=== PATIENT | female | born 1980 | race African-American/Black ===

== ENCOUNTER 2019-08-23 16:30 | Emergency (ER) | payer MEDICAID ==
[~2019-08-23] VITALS: Ht 170.2 cm; Wt 45.4 kg
[2019-08-23 16:30] VITALS: BP 96/68
--- NOTE | 2019-08-23 16:30 | NUR ---
ED Nurse Note: Pt BIBA from home d/t abdominal pain x 1 hour ago. Pt denies N/V as of now. Pt has hx of Cervical CA stage 3, frequent exposure to radiation. Pt is AOx4, calm and cooperative, VSS, RA. Placed on bed and gown; will continue to monitor.
[2019-08-23] MEDS ORDERED: Omnipaque-300 100ml vial INJ PRN ×2 (16:45)
[2019-08-23] MEDS ORDERED: Morphine Sulfate 2mg/ml Inj(IV/IM USE ONLY) IVP ONE ×2 (17:00→18:45)
[2019-08-23] MEDS ORDERED: DiphenhydrAMINE 50mg/ml Inj IVP ONE ×2 (17:00→18:45)
--- NOTE | 2019-08-23 17:02 | NUR ---
ED Nurse Note: X-ray on bedside.
[2019-08-23 17:23] LABS: HEMATOCRIT 32.5 % (37.0-47.0); HEMOGLOBIN 10.6 G/DL (12.0-16.0); MEAN CORPUSCULAR VOLUME 85 FL (80-99); PLATELET COUNT 127 K/UL (150-450); RED BLOOD COUNT 3.84 M/UL (4.20-5.40); RED CELL DISTRIBUTION WIDTH 21.2 % (11.6-14.8); WHITE BLOOD COUNT 3.4 K/UL (4.8-10.8)
[2019-08-23 17:30] LABS: ANION GAP 17 mmol/L (5-15); BLOOD UREA NITROGEN 11 mg/dL (7-18); CALCIUM 9.6 MG/DL (8.5-10.1); CARBON DIOXIDE 22 MMOL/L (21-32); CHLORIDE 102 MMOL/L (98-107); CREATININE 0.5 MG/DL (0.55-1.30); POTASSIUM 3.5 MMOL/L (3.5-5.1); SODIUM 141 MMOL/L (136-145)
[2019-08-23 17:34] LABS: ALANINE AMINOTRANSFERASE 27 U/L (12-78); ALBUMIN 3.4 G/DL (3.4-5.0); ALBUMIN/GLOBULIN RATIO 0.7 (1.0-2.7); ALKALINE PHOSPHATASE 63 U/L (46-116); ASPARTATE AMINO TRANSFERASE 17 U/L (15-37); BILIRUBIN,TOTAL 0.3 MG/DL (0.2-1.0)
[2019-08-23 18:00] VITALS: BP 98/70
--- NOTE | 2019-08-23 18:30 | NUR ---
ED Nurse Note: Pt went on CT accompanied by tech.
--- NOTE | 2019-08-23 19:09 | NUR ---
ED Nurse Note: Hand-off report given to GLENIS Car.
--- NOTE | 2019-08-23 19:12 | Diagnostic Imaging Report ---
INDICATION: 38-year-old female with history of cervical carcinoma. Chest and abdominal pain. TECHNIQUE: Continuous helical transaxial imaging of the chest, abdomen and pelvis was obtained from the lung bases to the pubic symphysis during intravenous contrast administration. Multiple phases of enhancement obtained. Coronal 2-D reformats were also obtained. Study obtained in a Siemens sensation [address] Automatic Exposure Control was utilized. Total Dose length Product (DLP): 260.[address] Dose Index Volume (CTDIvol): 40.8 mGy COMPARISON: None FINDINGS: CT CHEST: There is a 6 mm hypodense nodule in the right thyroid lobe. This could be cystic but requires ultrasound confirmation. There are no lung nodules identified. Patchy, peripheral subpleural ill-defined densities and paraseptal blebs are present within the upper lobes. This largest single bleb or bulla is about 2 cm in the left lung apex. There is pleural thickening at the apices nonspecific. These may be areas of scarring. This does not have the appearance of a neoplasm or metastatic disease. The aorta and pulmonary artery are grossly unremarkable. Heart is unremarkable. No adenopathy seen. No pleural effusion or pericardial effusion identified. CT ABDOMEN & PELVIS: Liver and spleen: Unremarkable. No lesions identified in the liver. Gallbladder/biliary ducts: Unremarkable. No dilatation of the biliary ducts identified. Pancreas: Unremarkable Kidneys: Unremarkable. Adrenal glands: No mass identified. Aorta/IVC: Unremarkable. Portal vein: Unremarkable. Normal enhancement demonstrated. Bowel: Bowel gas pattern is nonobstructive. Diverticulosis in the sigmoid region noted. The appendix is normal. Urinary bladder: Unremarkable. Uterus: Noted. Small bilateral ovarian cysts demonstrated. On the right there is a cyst measuring 2.3 cm. On the left smaller cyst measuring about 1 cm noted. No significant free fluid identified. Osseous structures: Unremarkable. IMPRESSION: No evidence of metastatic neoplasm on the basis of this examination. Nonspecific biapical pleural thickening, paraseptal blebs and ill-defined subpleural upper lobe densities likely an post inflammatory basis. Small bilateral ovarian cysts. 6 mm right thyroid nodule. Ultrasound evaluation suggested. The CT scanner at [facility] is accredited by the [employer] and the scans are performed using dose optimization techniques as appropriate to a performed exam including Automatic Exposure control.
--- NOTE | 2019-08-23 19:53 | NUR ---
ED Nurse Note: Pt given ice and juice as a fluid challenge
--- NOTE | 2019-08-23 19:56 | NUR ---
ED Nurse Note: MRSA and VRE culture as well as inpatient orders placed by Admitting MD on wrong pt. 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
--- NOTE | 2019-08-23 20:08 | Emergency Room Report ---
History of Present Illness General Chief Complaint: Abdominal Pain Present Illness HPI 38-year-old female with history of cervical cancer stage III currently under radiation therapy with last radiation therapy done yesterday, here brought in by paramedics complaining of acute onset of epigastric abdominal pain rating a 10 out of 10 with multiple bouts of nonbloody emesis and diarrhea. Patient also complains of external hemorrhoids secondary to diarrhea and has been there for a long time. Complains of a lot of irritation and dryness inside of rated radiation in the vaginal area. Patient reports that she has not been able to take her Gol[place] due to being overly nauseated and throwing up. Denies fever and chills. Denies . Patient is in moderate distress. Denies any chest pain, pleuritic chest pain, shortness of breath, headache and dizziness. Denies any blood in emesis or diarrhea. Denies urinary symptoms. Allergies: Coded Allergies: PENICILLINS (Verified Allergy, Unknown, 08/23/19) Patient History Past Medical History: see triage record Past Surgical History: none Pertinent Family History: none Now: No Immunizations: UTD Reviewed Nursing Documentation: PMH: Agreed; PSxH: Agreed Nursing Documentation-PMH Past Medical History: No History, Except For Review of Systems All Other Systems: negative except mentioned in HPI Physical Exam Vital Signs Date Time Temp Pulse Resp B/P (MAP) Pulse Ox O2 Delivery O2 Flow Rate FiO2 08/23/19 16:22 98.4 103 17 96/68 (77) 100 Room Air Sp02 EP Interpretation: reviewed, normal General Appearance: alert, GCS 15, non-toxic, mild distress Head: normocephalic, atraumatic Eyes: bilateral eye normal inspection, bilateral eye PERRL ENT: hearing grossly normal, normal pharynx, no angioedema, normal voice Neck: full range of motion, supple, thyroid normal, no meningismus, no bony tend, supple/symm/no masses Respiratory: chest non-tender, lungs clear, normal breath sounds, no rhonchi, no respiratory distress, no wheezing, speaking full sentences Cardiovascular #1: regular rate, rhythm, no edema, no murmur, normal capillary refill Cardiovascular #2: 2+ carotid (R), 2+ carotid (L), 2+ radial (R), 2+ radial (L) , 2+ dorsalis pedis (R), 2+ dorsalis pedis (L) Gastrointestinal: normal bowel sounds, non tender, soft, non-distended, no guarding, no rebound Rectal: deferred Genitourinary: no CVA tenderness Musculoskeletal: back normal, no calf tenderness, pelvis stable, Geri's Sign negative, no lower extremity edema Neurologic: alert, motor strength/tone normal, oriented x3, sensory intact, responsive, speech normal Psychiatric: judgement/insight normal, memory normal, mood/affect normal, no suicidal/homicidal ideation Skin: no rash Lymphatic: no adenopathy Medical Decision Making PA Attestation All my diagnosis and treatment plans were reviewed ad discussed with my supervising physician Dr. Sahu Diagnostic Impression: Primary Impression: Post-radiation dermatitis Additional Impressions: Abdominal pain External hemorrhoid UTI (urinary tract infection) ER Course 38-year-old female with history of cervical cancer stage III currently under radiation therapy with last radiation therapy done yesterday, here brought in by paramedics complaining of acute onset of epigastric abdominal pain rating a 10 out of 10 with multiple bouts of nonbloody emesis and diarrhea. Patient also complains of external hemorrhoids secondary to diarrhea and has been there for a long time. Complains of a lot of irritation and dryness inside of rated radiation in the vaginal area. Patient reports that she has not been able to take her Gol[place]a due to being overly nauseated and throwing up. Denies fever and chills. Denies . Patient is in moderate distress. Denies any chest pain, pleuritic chest pain, shortness of breath, headache and dizziness. Denies any blood in emesis or diarrhea. Denies urinary symptoms. Patient also complains of vaginal irritation that has been somewhat responsive to Neosporin and dressing. Prescription for equivalent to Neosporin. Ddx considered but are not limited to: appendicitis, cholecystis, gastritis, gastroenteritis, UTI, pyelonephritis, SBO, diverticulitis, influenza with GI manifestation, KS, postradiation abdominal pain, PE Vital signs: are WNL, pt. is afebrile H&PE are most consistent with: Post radiation abdominal pain, external hemorrhoids, vaginal irritation, UTI ORDERS: abdominal CT, abdominal pain set, EKG, Zofran, Anusol cream, Bactroban cream, macrobid ED INTERVENTIONS: NS bolus, morphine, Zofran, Benadryl DISCHARGE: At this time pt. is stable for d/c to home. Will provide printed patient care instructions, and any necessary prescriptions. Care plan and follow up instructions have been discussed with the patient prior to discharge. Take medication as directed, follow-up primary care provider, increase oral hydration, if worsening symptoms return to the emergency room. Patient reported that she breaks into hives with morphine however Benadryl, and after morphine she will be fine. Patient reports that she is allergic to Dilaudid. Follow-up with oncologist, if worsening symptoms return to emergency room. Advised her to take Zofran prior to Gol[place]a. EKG Diagnostic Results Rate: normal Rhythm: NSR ST Segments: no acute changes Other Impression No acute ST changes Chest X-Ray Diagnostic Results Chest X-Ray Diagnostic Results : Chest X-Ray Ordered: Yes # of Views/Limited/Complete: 1 View Indication: Other EP Interpretation: Yes PA Xray: Interpretation reviewed, by supervising MD, and agrees with findings. Interpretation: no consolidation, no effusion, no pneumothorax Impression: No acute disease Electronically Signed by: Ada Dowell PA-C CT/MRI/US Diagnostic Results CT/MRI/US Diagnostic Results : Imaging Test Ordered: CT chest abdomen pelvis with contrast Impression CT ABDOMEN & PELVIS With Contrast: Impression: There is diffuse thickening of the liang of the sigmoid colon, best seen on series 8 image 65 most compatible with inflammatory or infectious etiologies. Clinical correlation is advised. Ischiorectal fat is clean. There is no pelvic or inguinal lymphadenopathy noted. Prominent vasculature is noted in the adnexal regions bilaterally. If there is concern for etiology such as pelvic venous congestion syndrome, magnetic resonance imaging of the pelvis with gadolinium administration should be considered for follow-up. Incidental findings: The liver and the spleen enhance uniformly. The right adrenal gland is unremarkable. Probable 0.5 cm left adrenal adenoma. The head, body, tail of the pancreas and the gallbladder are unremarkable. Both kidneys are shown excrete contrast bilaterally. No retroperitoneal lymphadenopathy. The abdominal aorta is normal in caliber. Flow is demonstrated within the celiac, SMA, the renal arteries, and ANALIA. Moderate quantity of stool throughout the colon. No evidence of bowel obstruction. There is diverticulosis without diverticulitis. Fluid is noted within endometrial cavity. A 2.2 cm probable simple right ovarian cyst. The bladder is under distended but unremarkable. Ischiorectal fat is clean. There is no pelvic or inguinal lymphadenopathy. Alignment of the thoracolumbar spine is unremarkable. The sacrum and coccyx are unremarkable. CT CHEST With Contrast: Impression: Biapical fibronodular changes. A few scattered subcentimeter pulmonary nodules as outlined above of uncertain etiology. Thoracic aorta is unremarkable. No central pulmonary embolism. Limited evaluation of the peripheral branch of the pulmonary arteries which are grossly unremarkable. No hilar, mediastinal, or axillary lymphadenopathy. 0.4 cm indeterminate nodule right lobe of the thyroid gland. Incidental findings: Minimal bullous changes and fibronodular changes are noted at the lung apices. Best seen on series 7 image 41, there is a 4.2 cm pleural- based nodule of uncertain etiology. Best seen on series 7 image 51, there is a 0.5 cm noncalcified nodule of uncertain etiology. Evaluation of the left pulmonary parenchyma reveals patchy airspace disease at the inferior aspect of the right upper lobe possibly in the base of earlier residual pneumonia versus subsegmental atelectasis. Minimal bullous changes in fiber nodularity at the left apex is noted. The airway is patent. Evaluation of bone window images reveals mild degenerative disc disease. Alignment of the thoracic spine is unremarkable. The sternum is unremarkable. Spinous processes are unremarkable. Thoracic aorta is unremarkable. No central pulmonary embolism is detected. Grossly, the peripheral branch of the pulmonary arteries are unremarkable but limited in evaluation. The heart is normal in size. Last Vital Signs Date Time Temp Pulse Resp B/P (MAP) Pulse Ox O2 Delivery O2 Flow Rate FiO2 08/23/19 18:06 98.4 08/23/19 18:00 68 18 98/70 100 Room Air Status: improved Disposition: HOME, SELF-CARE Condition: Stable Scripts Mupirocin (MUPIROCIN) 15 Gm Cream..g. 1 APPLIC TOPIC THREE TIMES A DAY, #15 GM Prov: MagalysmogAda fournier 08/23/19 Hydrocortisone Hc 2.5% Cream (ANUSOL-HC 2.5% CREAM) Y Cr 2 GM RC TID, #30 GM Prov: Ada Loaiza 08/23/19 Ondansetron (Zofran) 4 Mg Tablet 4 MG ORAL Q6H PRN for Nausea & Vomiting, #14 TAB Prov: Ada Loaiza 08/23/19 Referrals: NON PHYSICIAN (PCP) Patient Instructions: Abdominal Pain, Adult, Hemorrhoids, [id number], Urinary Tract Infection Additional Instructions: Take medication as directed, follow-up with your oncologist, increase oral hydration, take your Zofran prior to taking your Golconda to prevent nausea. If worsening symptoms return to the emergency room Ada Loaiza Aug 23, 2019 20:08
[2019-08-23 20:12] LABS: APPEARANCE,URINE CLEAR; BILIRUBIN, URINE NEGATIVE (NEGATIVE); COLOR,URINE PALE YELLOW; GLUCOSE, URINE (UA) NEGATIVE (NEGATIVE); KETONES,URINE NEGATIVE (NEGATIVE); LEUKOCYTE ESTERASE ,URINE 3+ (NEGATIVE); NITRITE,URINE NEGATIVE (NEGATIVE); PH,URINE 7 (4.5-8.0); PROTEIN,URINE 1+ (NEGATIVE); UROBILINOGEN,URINE NORMAL MG/DL (0.0-1.0)
[2019-08-23] MEDS ORDERED: ZOFRAN4 M1 ORAL (20:25)
[2019-08-23] MEDS ORDERED: ANUSOL-HC30 GM RC (20:25)
[2019-08-23] MEDS ORDERED: MUPIROCIN15 GM TOPIC (20:25)
[2019-08-23] MEDS ORDERED: NITROFURANTOIN100 M2 ORAL (20:28)
[2019-08-23] MEDS ORDERED: DiphenhydrAMINE 25mg Tab ORAL ONE (20:30)
[2019-08-23 21:00] VITALS: BP 98/70
--- NOTE | 2019-08-23 21:00 | NUR ---
ER DISCHARGE NOTE: Patient is cleared to be discharged per ERMD, pt is aox4, on room air, with stable vital signs. pt was given dc and prescription instructions, pt was able to verbalize understanding, pt id band and iv site removed without complications. pt is able to ambulate with steady gait. pt took all belongings.
--- NOTE | 2019-08-24 12:32 | Diagnostic Imaging Report ---
Indication: Dyspnea Comparison: None A single view chest radiograph was obtained. Findings: Biapical pleural thickening demonstrated, nonspecific. Heart size is normal. Bones are unremarkable. No pleural effusion seen. No infiltrate identified. IMPRESSION: Mild biapical pleural thickening nonspecific.
== END 2019-08-23 21:00 | disposition home or self-care (01) ==
LOC: EDBD 16:30 → EMR 16:45
DX: R10.13 Epigastric pain (principal); N39.0 Urinary tract infection, site not specified; K64.4 Residual hemorrhoidal skin tags; L25.8 Unspecified contact dermatitis due to other agents; Z88.0 Allergy status to penicillin
CPT/HCPCS: 36415; 71045; 71260; 74177; 80053; 80307; 81003; 81025; 83690; 84484; 85007; 85025; 85610; 85730; 86850; 86900; 86901; 87086; 93005; 96361; 96374; 96375; 96376; J1200; J2270; J2405; J7030; Q9967; S0028; Z7502; 99285

== ENCOUNTER 2019-08-27 11:37 | Inpatient (IN) | payer MEDICAID ==
[~2019-08-27] VITALS: Ht 172.7 cm; Wt 49.9 kg
[~2019-08-27 11:37] MED LIST: ANUSOL-HC30 GM RC; MUPIROCIN15 GM TOPIC; NITROFURANTOIN100 M2 ORAL; ZOFRAN4 M1 ORAL
[2019-08-27] MEDS ORDERED: Morphine Sulfate 4mg/ml Inj (IV USE ONLY) IVP ONE (12:15)
[2019-08-27 12:30] VITALS: BP 99/69
--- NOTE | 2019-08-27 12:30 | NUR ---
ED Nurse Note: Patient brought into [facility] by wheelchair accompanied by cousin c/o n/v/d x 1 week with generalized 10/10 body aches d/t recent radiation therapy post-cervical cancer dx. Patient AxO x 4, unable to ambulate more than a few steps d/t the pain she feels. 22g IV started in right hand. Patient on the awake overnight monitor, bed in lowest position. VSS. Blood sent to lab. Patient unable to urinate at the moment.
--- NOTE | 2019-08-27 12:40 | NUR ---
ED Nurse Note: Verbal order received from Dr. Rincon for 25 mg Bendryl once IVP for itching.
[2019-08-27] MEDS ORDERED: DiphenhydrAMINE 50mg/ml Inj ONE ×2 (12:48→13:57)
--- NOTE | 2019-08-27 13:03 | Emergency Room Report ---
History of Present Illness General Chief Complaint: Nausea, Vomiting, and Diarrhea Source: Patient Present Illness HPI 38-year-old female history of cervical cancer, stage III, currently on radiation therapy presented for nausea vomiting and diarrhea. She has had persistent nausea vomiting diarrhea for the past 3 days. Unable to tolerate p.o. intake. Last radiation treatment was about 2 weeks ago. She has scheduled surgery for her cervical cancer later this month. She denies any fevers. Pain is generalized but worse in the pelvic region about 10 out of 10. Patient seen approximately 3 days ago for the same had a CT scan showing some inflammatory changes in the bowel most likely secondary to radiation exposure and was discharged on oral antibiotic. Been unable to take her medications at home due to vomiting. Allergies: Coded Allergies: PENICILLINS (Verified Allergy, Unknown, 08/23/19) Patient History Past Medical History: see triage record Last Menstrual Period: NA Now: No Reviewed Nursing Documentation: PMH: Agreed; PSxH: Agreed Nursing Documentation-PMH Past Medical History: No History, Except For Review of Systems All Other Systems: negative except mentioned in HPI Physical Exam Vital Signs Date Time Temp Pulse Resp B/P (MAP) Pulse Ox O2 Delivery O2 Flow Rate FiO2 08/27/19 11:43 98.2 97 18 99/69 (79) 97 Room Air Sp02 EP Interpretation: reviewed, normal General Appearance: mild distress, thin Head: normocephalic, atraumatic Eyes: bilateral eye PERRL, bilateral eye EOMI ENT: hearing grossly normal, moist mucus membranes Neck: full range of motion, supple Respiratory: lungs clear, normal breath sounds, no rhonchi, no respiratory distress, no retraction, no wheezing Cardiovascular #1: normal peripheral pulses, regular rate, rhythm, no murmur Gastrointestinal: soft, non-distended, no guarding, other - Lower abdominal tenderness noted Neurologic: alert, oriented x3, no focal defects Skin: normal color, warm/dry Medical Decision Making Diagnostic Impression: Primary Impression: Intractable vomiting Additional Impression: Dehydration ER Course Differential included but not limited to intractable vomiting, post radiation nominal pain, dehydration, worsening cancer burden to name a few. In the ER patient given IV fluids, pain control and Zofran. Patient feeling improved after treatment in the ER but still having pain and unable to tolerate p.o. fluids. As this is her second visit to the ER for vomiting and diarrhea will plan to admit for IV hydration pain control and observation. Patient was agreeable with the plan. Patient admitted to the hospitalist. Laboratory Tests Test 08/27/19 12:20 White Blood Count 2.9 K/UL (4.8-10.8) L Red Blood Count 3.67 M/UL (4.20-5.40) L Hemoglobin 10.4 G/DL (12.0-16.0) L Hematocrit 31.0 % (37.0-47.0) L Mean Corpuscular Volume 84 FL (80-99) Mean Corpuscular Hemoglobin 28.4 PG (27.0-31.0) Mean Corpuscular Hemoglobin Concent 33.7 G/DL (32.0-36.0) Red Cell Distribution Width 18.2 % (11.6-14.8) H Platelet Count 121 K/UL (150-450) L Mean Platelet Volume 6.0 FL (6.5-10.1) L Neutrophils (%) (Auto) % (45.0-75.0) Lymphocytes (%) (Auto) % (20.0-45.0) Monocytes (%) (Auto) % (1.0-10.0) Eosinophils (%) (Auto) % (0.0-3.0) Basophils (%) (Auto) % (0.0-2.0) Differential Total Cells Counted 100 Neutrophils % (Manual) 74 % (45-75) Lymphocytes % (Manual) 10 % (20-45) L Monocytes % (Manual) 13 % (1-10) H Eosinophils % (Manual) 3 % (0-3) Basophils % (Manual) 0 % (0-2) Band Neutrophils 0 % (0-8) Platelet Estimate Decreased L Platelet Morphology Normal Red Blood Cell Morphology Hypochromasia 1+ Sodium Level 139 MMOL/L (136-145) Potassium Level 3.8 MMOL/L (3.5-5.1) Chloride Level 100 MMOL/L (98-107) Carbon Dioxide Level 27 MMOL/L (21-32) Anion Gap 12 mmol/L (5-15) Blood Urea Nitrogen 9 mg/dL (7-18) Creatinine 0.5 MG/DL (0.55-1.30) L Estimate Glomerular Filtration Rate > 60 mL/min (>60) Glucose Level 98 MG/DL (74-106) Calcium Level 10.0 MG/DL (8.5-10.1) Total Bilirubin 0.5 MG/DL (0.2-1.0) Aspartate Amino Transferase (AST) 20 U/L (15-37) Alanine Aminotransferase (ALT) 22 U/L (12-78) Alkaline Phosphatase 64 U/L (46-116) Total Protein 8.5 G/DL (6.4-8.2) H Albumin 3.7 G/DL (3.4-5.0) Globulin 4.8 g/dL Albumin/Globulin Ratio 0.8 (1.0-2.7) L Lipase 81 U/L (73-393) Last Vital Signs Date Time Temp Pulse Resp B/P (MAP) Pulse Ox O2 Delivery O2 Flow Rate FiO2 08/27/19 11:43 98.2 97 18 99/69 (79) 97 Room Air Status: improved Disposition: ADMITTED INPATIENT Condition: Serious Bill Rincon M.D. Aug 27, 2019 13:03
[2019-08-27 13:10] LABS: ANION GAP 12 mmol/L (5-15); BLOOD UREA NITROGEN 9 mg/dL (7-18); CARBON DIOXIDE 27 MMOL/L (21-32); CHLORIDE 100 MMOL/L (98-107); CREATININE 0.5 MG/DL (0.55-1.30); POTASSIUM 3.8 MMOL/L (3.5-5.1); SODIUM 139 MMOL/L (136-145)
[2019-08-27 13:14] LABS: ALANINE AMINOTRANSFERASE 22 U/L (12-78); ALBUMIN 3.7 G/DL (3.4-5.0); ALBUMIN/GLOBULIN RATIO 0.8 (1.0-2.7); ALKALINE PHOSPHATASE 64 U/L (46-116); ASPARTATE AMINO TRANSFERASE 20 U/L (15-37); BILIRUBIN,TOTAL 0.5 MG/DL (0.2-1.0)
[2019-08-27 13:22] LABS: HEMOGLOBIN 10.4 G/DL (12.0-16.0); MEAN CORPUSCULAR VOLUME 84 FL (80-99); PLATELET COUNT 121 K/UL (150-450); RED BLOOD COUNT 3.67 M/UL (4.20-5.40); RED CELL DISTRIBUTION WIDTH 18.2 % (11.6-14.8); WHITE BLOOD COUNT 2.9 K/UL (4.8-10.8)
--- NOTE | 2019-08-27 13:53 | NUR ---
ED Nurse Note: Patient still itchy from Morphine. Verbal order for Benadryl 25 mg IVP once for itching received from Dr. Rincon.
[2019-08-27 14:30] VITALS: BP 108/72
--- NOTE | 2019-08-27 14:35 | NUR ---
ED Nurse Note: Patient provided urine sample using bedside commode. Urine sent to lab.
[2019-08-27] MEDS ORDERED: DiphenhydrAMINE 50mg/ml Inj IVP ONE (14:45)
--- NOTE | 2019-08-27 14:58 | NUR ---
ED Nurse Note: Report given to Milak GALVIN
[2019-08-27 15:01] LABS: APPEARANCE,URINE CLEAR; BILIRUBIN, URINE NEGATIVE (NEGATIVE); COLOR,URINE YELLOW; GLUCOSE, URINE (UA) NEGATIVE (NEGATIVE); KETONES,URINE NEGATIVE (NEGATIVE); LEUKOCYTE ESTERASE ,URINE 3+ (NEGATIVE); NITRITE,URINE NEGATIVE (NEGATIVE); PH,URINE 7 (4.5-8.0); PROTEIN,URINE 1+ (NEGATIVE); UROBILINOGEN,URINE NORMAL MG/DL (0.0-1.0)
--- NOTE | 2019-08-27 15:20 | NUR ---
NURSE NOTES: PATIENT ARRIVED FROM ED DEPT. VIA GURNEY. AOX4. WITH FAMILY AT SIDE. QUESTIONS ANSWERED NEEDS MET AT THIS TIME. DISCUSSED PLAN OF CARE FOR THE DAY. VERBALIZED UNDERSTANDING. PT. ORIENTED TO ROOM. WILL NOTIFY PCP OF PATIENT'S ARRIVAL TO FLOOR. BED IN LOW AND LOCKED POSITION. CALL LIGHT WITHIN REACH.
[2019-08-27 16:00] VITALS: BP 105/65
--- NOTE | 2019-08-27 16:24 | Cardiac Electrophysiology PN ---
Subjective Subjective [id number] Objective Last 24 Hour Vital Signs Date Time Temp Pulse Resp B/P (MAP) Pulse Ox O2 Delivery O2 Flow Rate FiO2 08/27/19 14:30 98.0 76 19 108/72 100 Room Air 08/27/19 13:02 98.0 08/27/19 12:30 98.2 78 18 99/69 97 Room Air 08/27/19 11:43 98.2 97 18 99/69 (79) 97 Room Air Laboratory Tests Test 08/27/19 12:20 08/27/19 14:38 White Blood Count 2.9 K/UL (4.8-10.8) L Red Blood Count 3.67 M/UL (4.20-5.40) L Hemoglobin 10.4 G/DL (12.0-16.0) L Hematocrit 31.0 % (37.0-47.0) L Mean Corpuscular Volume 84 FL (80-99) Mean Corpuscular Hemoglobin 28.4 PG (27.0-31.0) Mean Corpuscular Hemoglobin Concent 33.7 G/DL (32.0-36.0) Red Cell Distribution Width 18.2 % (11.6-14.8) H Platelet Count 121 K/UL (150-450) L Mean Platelet Volume 6.0 FL (6.5-10.1) L Neutrophils (%) (Auto) % (45.0-75.0) Lymphocytes (%) (Auto) % (20.0-45.0) Monocytes (%) (Auto) % (1.0-10.0) Eosinophils (%) (Auto) % (0.0-3.0) Basophils (%) (Auto) % (0.0-2.0) Differential Total Cells Counted 100 Neutrophils % (Manual) 74 % (45-75) Lymphocytes % (Manual) 10 % (20-45) L Monocytes % (Manual) 13 % (1-10) H Eosinophils % (Manual) 3 % (0-3) Basophils % (Manual) 0 % (0-2) Band Neutrophils 0 % (0-8) Platelet Estimate Decreased L Platelet Morphology Normal Red Blood Cell Morphology Hypochromasia 1+ Sodium Level 139 MMOL/L (136-145) Potassium Level 3.8 MMOL/L (3.5-5.1) Chloride Level 100 MMOL/L (98-107) Carbon Dioxide Level 27 MMOL/L (21-32) Anion Gap 12 mmol/L (5-15) Blood Urea Nitrogen 9 mg/dL (7-18) Creatinine 0.5 MG/DL (0.55-1.30) L Estimat Glomerular Filtration Rate > 60 mL/min (>60) Glucose Level 98 MG/DL (74-106) Calcium Level 10.0 MG/DL (8.5-10.1) Total Bilirubin 0.5 MG/DL (0.2-1.0) Aspartate Amino Transf (AST/SGOT) 20 U/L (15-37) Alanine Aminotransferase (ALT/SGPT) 22 U/L (12-78) Alkaline Phosphatase 64 U/L (46-116) Total Protein 8.5 G/DL (6.4-8.2) H Albumin 3.7 G/DL (3.4-5.0) Globulin 4.8 g/dL Albumin/Globulin Ratio 0.8 (1.0-2.7) L Lipase 81 U/L (73-393) Urine Color Yellow Urine Appearance Clear Urine pH 7 (4.5-8.0) Urine Specific Dora 1.005 (1.005-1.035) Urine Protein 1+ (NEGATIVE) H Urine Glucose (UA) Negative (NEGATIVE) Urine Ketones Negative (NEGATIVE) Urine Blood 2+ (NEGATIVE) H Urine Nitrite Negative (NEGATIVE) Urine Bilirubin Negative (NEGATIVE) Urine Urobilinogen Normal MG/DL (0.0-1.0) Urine Leukocyte Esterase 3+ (NEGATIVE) H Urine RBC 2-4 /HPF (0 - 2) H Urine WBC 20-30 /HPF (0 - 2) H Urine Squamous Epithelial Cells Few /LPF (NONE/OCC) Urine Bacteria Few /HPF (NONE) Urine HCG, Qualitative Negative (NEGATIVE) Charles Mckeon MD Aug 27, 2019 16:24
--- NOTE | 2019-08-27 16:44 | NUR ---
CHARGE NURSE NOTES: LEFT MESSAGE TO dR Willis for admission orders
[2019-08-27] MEDS ORDERED: Aztreonam Inj 2 GM in D5W 110 ML IVPB SCH (17:00)
--- NOTE | 2019-08-27 17:10 | NUR ---
NURSE NOTES: CONSULTING. ORDERED 3 DIFFERENT IV ANTIBIOTICS. PATIENT RELUCTANT TO HAVE THEM INFUSED WITHOUT MORE CLARIFICATION FROM THE ID MD. PLACED CALL TO DR. TORRES.WILL CALL AGAIN PER MD REQUEST TO TALK WITH PATIENT BY PHONE. PATIENT MADE AWARE.
--- NOTE | 2019-08-27 17:15 | Consultation ---
DATE OF CONSULTATION: 08/27/2019 CARDIOLOGY CONSULTATION CONSULTING PHYSICIAN: Charles Mckeon M.D. REFERRING PHYSICIAN: Ngoc Teresa M.D. REASON FOR CONSULTATION: Shortness of breath and hypotension. HISTORY OF PRESENT ILLNESS: The patient is a 38-year-old lady with history of stage III cervical cancer status post surgery and who completed radiation therapy just last week, presented to the emergency room with nausea, vomiting, and diarrhea the last 3 days. The patient was not able to take any p.o. intake. The patient is scheduled for her cervical cancer surgery later this month. The patient was seen in the ER [address] showed some changes in bowel most likely secondary to radiation exposure and was discharged on p.o. antibiotics. The patient has not been able to take medication at home due to nausea and vomiting, came to the emergency room. In the ER, blood pressure was only 99/65 with a pulse of 97, respirations of 18. REVIEW OF SYSTEMS: Negative other than what was mentioned in the history of present illness. PAST MEDICAL HISTORY: As mentioned above. FAMILY HISTORY: Noncontributory. SOCIAL HISTORY: Lives at home. Does not smoke or drink alcohol. PHYSICAL EXAMINATION: VITAL SIGNS: Blood pressure of 108/72, pulse 76, respirations 19, temperature 98. HEAD AND NECK: Showed no JVD. LUNGS: Clear. CARDIOVASCULAR: Regular S1 and S2 with no gallop. ABDOMEN: Soft. EXTREMITIES: No pitting edema. LABORATORY DATA: Her labs show white count of 2.9, hemoglobin 10.4, platelet count 121. Sodium 139, potassium 3.8, BUN of 9, creatinine 0.9. Troponin is negative. Urine toxicology screen is negative. ASSESSMENT AND PLAN: 1. Hypotension. Blood pressures is in the 90s. The patient however does not have any lightheadedness or dizziness. If the hypotension continues, I will start the patient on midodrine. In the meantime, get an echocardiogram and completely rule out MS protocol. 2. Shortness of breath. Check a BNP and echocardiogram. 3. Pancytopenia with low white count of 2.9, hemoglobin of 10, and platelet count of 121. Further evaluation by Hematology. 4. Cervical cancer, status post radiation therapy. 5. Intractable nausea and vomiting, followed by GI. Thank you very much, Dr. Teresa, for allowing me to participate in the care of this patient. Please do not hesitate to contact me for any questions regarding my evaluation. Charles Mckeon M.D. DR: DAVID JOB#: [id number] CC:
[2019-08-27] MEDS ORDERED: Vancomycin 1gm/D5W 275ml IVPB ONE ×2 (17:30)
[2019-08-27] MEDS ORDERED: Vancomycin 1gm/D5W 275ml IVPB SCH ×4 (17:30→22:00)
[2019-08-27] MEDS ORDERED: Morphine Sulfate 4mg/ml Inj (IV USE ONLY) IVP PRN (17:45)
[2019-08-27] MEDS ORDERED: DiphenhydrAMINE 50mg/ml Inj IVP PRN (17:45)
--- NOTE | 2019-08-27 18:25 | NUR ---
NURSE NOTES: 2ND CALL PLACED TO DR. TORRES. TRANSFERRED BY PHONE TO PATIENT'S ROOM. SPOKE TO PATIENT AND WITH MORE CLARIFICATION OF WHY X3 IV ANTIBIOTICS. PATIENT NOW AGREES TO RECEIVE ANTIBIOTICS ORDERED.
[2019-08-27] MEDS: D5NS 1,000 ML IV SCH (18:54)
--- NOTE | 2019-08-27 19:43 | NUR ---
NURSE NOTES: HAND-OFF: Report given to TRINO VANEGAS RN.
--- NOTE | 2019-08-27 19:45 | NUR ---
NURSE NOTES: Pt. received from GLENIS Jarquin. Pt. AAOx4, on room air, ambulatory, breathing is even and unlabored. IV access right hand 22g noted, asymptomatic, intact, and patent. Bed is low and locked, side rails x2 up, and call light is in reach. Will continue to monitor.
[2019-08-27 20:00] VITALS: BP 113/74
[2019-08-27] MEDS ORDERED: LORazepam 0.5mg tab ORAL PRN (21:15)
--- NOTE | 2019-08-27 22:15 | NUR ---
NURSE NOTES: Pt. started complaining about headaches and subsequently vomiting following IV vancomycin running. IV vancomycin now stopped.
--- NOTE | 2019-08-27 23:23 | NUR ---
NURSE NOTES: Dr. Avitia called regarding pt. reaction to vancomycin, awaiting return call. Will continue to monitor pt.
[2019-08-28] VITALS: BP 99/61
[2019-08-28] MEDS: Ketorolac 30mg Inj IV PRN (00:21)
[2019-08-28] MEDS: Aztreonam Inj 2 GM in D5W 110 ML IVPB SCH ×4 (00:52→23:10)
[2019-08-28 04:00] VITALS: BP 123/73
[2019-08-28] MEDS: D5NS 1,000 ML IV SCH ×3 (04:00→14:00)
[2019-08-28] MEDS: Morphine Sulfate 2mg/ml Inj(IV/IM USE ONLY) IVP PRN ×4 (05:15→18:47)
[2019-08-28 07:37] LABS: HEMATOCRIT 26.4 % (37.0-47.0); HEMOGLOBIN 9.1 G/DL (12.0-16.0); MEAN CORPUSCULAR VOLUME 85 FL (80-99); PLATELET COUNT 103 K/UL (150-450); RED BLOOD COUNT 3.13 M/UL (4.20-5.40); RED CELL DISTRIBUTION WIDTH 18.3 % (11.6-14.8)
[2019-08-28 07:38] LABS: WHITE BLOOD COUNT 1.7 K/UL (4.8-10.8)
--- NOTE | 2019-08-28 07:44 | General Progress Note ---
Assessment/Plan Assessment/Plan: cervical Ca radiation enteritis diarrhea wt loss pancytopenia ivf pain control stool studies fu cardiology Subjective ROS Limited/Unobtainable: Yes Allergies: Coded Allergies: PENICILLINS (Verified Allergy, Unknown, 08/23/19) VANCOMYCIN (Verified Adverse Reaction, Intermediate, 08/27/19) headache and vomitting Objective Last 24 Hour Vital Signs Date Time Temp Pulse Resp B/P (MAP) Pulse Ox O2 Delivery O2 Flow Rate FiO2 08/28/19 05:45 98.2 08/28/19 04:00 98.0 80 21 123/73 (90) 97 08/28/19 00:51 98.2 08/28/19 00:00 97.6 72 20 99/61 (74) 98 08/27/19 21:00 Room Air 08/27/19 20:00 98.2 67 20 113/74 (87) 98 08/27/19 18:58 98.4 08/27/19 16:00 98.4 70 17 105/65 (78) 96 08/27/19 15:38 Room Air 08/27/19 15:10 98.0 76 19 108/72 100 Room Air 08/27/19 14:30 98.0 76 19 108/72 100 Room Air 08/27/19 13:02 98.0 08/27/19 12:30 98.2 78 18 99/69 97 Room Air 08/27/19 11:43 98.2 97 18 99/69 (79) 97 Room Air Intake and Output 08/27/19 08/28/19 19:00 07:00 Intake Total 1000 ml 1310 ml Balance 1000 ml 1310 ml Intake Oral 0 ml IV Total 1000 ml 1310 ml # Voids 4 # Bowel Movements 1 1 Laboratory Tests 08/27/19 12:20: White Blood Count 2.9L, Red Blood Count 3.67L, Hemoglobin 10.4L, Hematocrit 31.0L, Mean Corpuscular Volume 84, Mean Corpuscular Hemoglobin 28.4, Mean Corpuscular Hemoglobin Concent 33.7, Red Cell Distribution Width 18.2H, Platelet Count 121L, Mean Platelet Volume 6.0L, Neutrophils (%) (Auto) , Lymphocytes (%) (Auto) , Monocytes (%) (Auto) , Eosinophils (%) (Auto) , Basophils (%) (Auto) , Differential Total Cells Counted 100, Neutrophils % ( Manual) 74, Lymphocytes % (Manual) 10L, Monocytes % (Manual) 13H, Eosinophils % (Manual) 3, Basophils % (Manual) 0, Band Neutrophils 0, Platelet Estimate DecreasedL, Platelet Morphology Normal, Red Blood Cell Morphology , Hypochromasia 1+, Sodium Level 139, Potassium Level 3.8, Chloride Level 100, Carbon Dioxide Level 27, Anion Gap 12, Blood Urea Nitrogen 9, Creatinine 0.5L, Estimat Glomerular Filtration Rate > 60, Glucose Level 98, Calcium Level 10.0, Total Bilirubin 0.5, Aspartate Amino Transf (AST/SGOT) 20, Alanine Aminotransferase (ALT/SGPT) 22, Alkaline Phosphatase 64, Total Protein 8.5H, Albumin 3.7, Globulin 4.8, Albumin/Globulin Ratio 0.8L, Lipase 81 08/27/19 14:38: D-Dimer 0.70H, Urine Color Yellow, Urine Appearance Clear, Urine pH 7, Urine Specific [place] 1.005, Urine Protein 1+H, Urine Glucose (UA) Negative, Urine Ketones Negative, Urine Blood 2+H, Urine Nitrite Negative, Urine Bilirubin Negative, Urine Urobilinogen Normal, Urine Leukocyte Esterase 3+H, Urine RBC 2- 4H, Urine WBC 20-30H, Urine Squamous Epithelial Cells Few, Urine Bacteria Few, Urine HCG, Qualitative Negative 08/28/19 05:15: White Blood Count 1.7*L, Red Blood Count 3.13L, Hemoglobin 9.1L, Hematocrit 26.4L, Mean Corpuscular Volume 85, Mean Corpuscular Hemoglobin 29.1, Mean Corpuscular Hemoglobin Concent 34.4, Red Cell Distribution Width 18.3H, Platelet Count 103L, Mean Platelet Volume 5.9L, Neutrophils (%) (Auto) , Lymphocytes (%) (Auto) , Monocytes (%) (Auto) , Eosinophils (%) (Auto) , Basophils (%) (Auto) , Neutrophils % (Manual) [Pending], Lymphocytes % (Manual) [Pending], Platelet Estimate [Pending], Platelet Morphology [Pending], Sodium Level [Pending], Potassium Level [Pending], Chloride Level [Pending], Carbon Dioxide Level [Pending], Blood Urea Nitrogen [Pending], Creatinine [Pending], Estimat Glomerular Filtration Rate [Pending], Glucose Level [Pending], Calcium Level [Pending], Total Bilirubin [Pending], Aspartate Amino Transf (AST/SGOT) [ Pending], Alanine Aminotransferase (ALT/SGPT) [Pending], Alkaline Phosphatase [ Pending], Total Protein [Pending], Albumin [Pending], Globulin [Pending], Hemoglobin A1c [Pending], Uric Acid [Pending], Phosphorus Level [Pending], Magnesium Level [Pending], Iron Level [Pending], Unsaturated Iron Binding [ Pending], Ferritin [Pending], Gamma Glutamyl Transpeptidase [Pending], Troponin I [Pending], C-Reactive Protein, Quantitative [Pending], Pro-B-Type Natriuretic Peptide [Pending], Vitamin B12 Level [Pending], Folate [Pending], Thyroid Stimulating Hormone (TSH) [Pending], Free Thyroxine [Pending] 08/28/19 05:20: Urine Opiates Screen [Pending], Urine Barbiturates Screen [Pending], Phencyclidine (PCP) Screen [Pending], Urine Amphetamines Screen [Pending], Urine Benzodiazepines Screen [Pending], Urine Cocaine Screen [Pending], Urine Marijuana (THC) Screen [Pending] Height (Feet): 5 Height (Inches): 8.00 Weight (Pounds): 110 General Appearance: alert EENT: normal ENT inspection Neck: supple Cardiovascular: normal rate Respiratory/Chest: lungs clear Abdomen: normal bowel sounds, non tender, soft Extremities: non-tender Vinny Kennedy MD Aug 28, 2019 07:44
--- NOTE | 2019-08-28 07:45 | NUR ---
NURSE NOTES: Spoke with Dr. Avitia, doctor is aware. No new orders.
[2019-08-28 08:00] VITALS: BP 108/66
[2019-08-28] MEDS ORDERED: Vancomycin 1gm/D5W 275ml IVPB SCH ×2 (08:00)
--- NOTE | 2019-08-28 08:04 | NUR ---
HAND-OFF: Report given to GLENIS Garza.
[2019-08-28 08:05] LABS: GAMMA GLUTAMYL TRANSPEPTIDASE 21 U/L (5-85); PHOSPHORUS 4.5 MG/DL (2.5-4.9)
--- NOTE | 2019-08-28 08:12 | NUR ---
NURSE NOTES: AWAKE/ALERT. PAIN SCALE 8/10. IN NO DISTRESS.
[2019-08-28 08:20] LABS: IRON 98 ug/dL (50-175); TOTAL IRON BINDING CAPACITY 242 ug/dL (250-450)
[2019-08-28 08:23] LABS: % IRON SATURATION 40 % (15-50); ALANINE AMINOTRANSFERASE 21 U/L (12-78); ALBUMIN/GLOBULIN RATIO 0.7 (1.0-2.7); ALKALINE PHOSPHATASE 53 U/L (46-116); ANION GAP 12 mmol/L (5-15); ASPARTATE AMINO TRANSFERASE 20 U/L (15-37); BILIRUBIN,TOTAL 0.5 MG/DL (0.2-1.0); BLOOD UREA NITROGEN 8 mg/dL (7-18); CALCIUM 9.3 MG/DL (8.5-10.1); CARBON DIOXIDE 24 MMOL/L (21-32); CHLORIDE 103 MMOL/L (98-107); CREATININE 0.5 MG/DL (0.55-1.30); FERRITIN 204 NG/ML (8-388); POTASSIUM 3.7 MMOL/L (3.5-5.1); SODIUM 139 MMOL/L (136-145)
[2019-08-28] MEDS: Pantoprazole Inj IVP SCH (08:47)
[2019-08-28] MEDS ORDERED: TBO-Filgrastim 300 mcg/0.5ml SQ SCH (09:00)
--- NOTE | 2019-08-28 09:00 | NUR ---
NURSE NOTES: DR TORRES CALLED RE WBC 1.7 . NO FURTHER ORDERS.
[2019-08-28 12:00] VITALS: BP 103/66
--- NOTE | 2019-08-28 12:21 | History & Physical ---
History and Physical History & Physicial seen and examined. Dictation completed Ngoc Teresa MD Aug 28, 2019 12:21
--- NOTE | 2019-08-28 14:45 | Cardiac Electrophysiology PN ---
Assessment/Plan Assessment/Plan 1. Hypotension. Blood pressures is in the 90s. The patient however does not have any lightheadedness or dizziness. If the hypotension continues, I will start the patient on midodrine. Echocardiogram EF 55%. 2. Shortness of breath.Troponin negative. 3. Pancytopenia with low white count of 1.7, hemoglobin of 10, and platelet count of 121. Further evaluation by Hematology. 4. Cervical cancer, status post radiation therapy. 5. Intractable nausea and vomiting, followed by GI. Subjective Subjective Alert in NAD. No CP or SOB Objective Last 24 Hour Vital Signs Date Time Temp Pulse Resp B/P (MAP) Pulse Ox O2 Delivery O2 Flow Rate FiO2 08/28/19 12:00 97.7 74 20 103/66 (78) 100 08/28/19 10:49 98.0 08/28/19 09:00 Room Air 08/28/19 08:00 98.0 62 18 108/66 (80) 99 08/28/19 04:00 98.0 80 21 123/73 (90) 97 08/28/19 00:51 98.2 08/28/19 00:00 97.6 72 20 99/61 (74) 98 08/27/19 21:00 Room Air 08/27/19 20:00 98.2 67 20 113/74 (87) 98 08/27/19 18:58 98.4 08/27/19 16:00 98.4 70 17 105/65 (78) 96 08/27/19 15:38 Room Air 08/27/19 15:10 98.0 76 19 108/72 100 Room Air Intake and Output 08/27/19 08/28/19 19:00 07:00 Intake Total 1000 ml 1310 ml Balance 1000 ml 1310 ml Intake Oral 0 ml IV Total 1000 ml 1310 ml # Voids 4 # Bowel Movements 1 1 Laboratory Tests Test 08/28/19 05:15 08/28/19 05:20 White Blood Count 1.7 K/UL (4.8-10.8) *L Red Blood Count 3.13 M/UL (4.20-5.40) L Hemoglobin 9.1 G/DL (12.0-16.0) L Hematocrit 26.4 % (37.0-47.0) L Mean Corpuscular Volume 85 FL (80-99) Mean Corpuscular Hemoglobin 29.1 PG (27.0-31.0) Mean Corpuscular Hemoglobin Concent 34.4 G/DL (32.0-36.0) Red Cell Distribution Width 18.3 % (11.6-14.8) H Platelet Count 103 K/UL (150-450) L Mean Platelet Volume 5.9 FL (6.5-10.1) L Neutrophils (%) (Auto) % (45.0-75.0) Lymphocytes (%) (Auto) % (20.0-45.0) Monocytes (%) (Auto) % (1.0-10.0) Eosinophils (%) (Auto) % (0.0-3.0) Basophils (%) (Auto) % (0.0-2.0) Differential Total Cells Counted 100 Neutrophils % (Manual) 61 % (45-75) Lymphocytes % (Manual) 19 % (20-45) L Monocytes % (Manual) 20 % (1-10) H Eosinophils % (Manual) 0 % (0-3) Basophils % (Manual) 0 % (0-2) Band Neutrophils 0 % (0-8) Platelet Estimate Decreased L Platelet Morphology Normal Anisocytosis 1+ Sodium Level 139 MMOL/L (136-145) Potassium Level 3.7 MMOL/L (3.5-5.1) Chloride Level 103 MMOL/L (98-107) Carbon Dioxide Level 24 MMOL/L (21-32) Anion Gap 12 mmol/L (5-15) Blood Urea Nitrogen 8 mg/dL (7-18) Creatinine 0.5 MG/DL (0.55-1.30) L Estimat Glomerular Filtration Rate > 60 mL/min (>60) Glucose Level 107 MG/DL (74-106) H Hemoglobin A1c 5.5 % (4.3-6.0) Uric Acid 2.2 MG/DL (2.6-7.2) L Calcium Level 9.3 MG/DL (8.5-10.1) Phosphorus Level 4.5 MG/DL (2.5-4.9) Magnesium Level 1.9 MG/DL (1.8-2.4) Iron Level 98 ug/dL (50-175) Total Iron Binding Capacity 242 ug/dL (250-450) L Percent Iron Saturation 40 % (15-50) Unsaturated Iron Binding 144 ug/dL (112-346) Ferritin 204 NG/ML (8-388) Total Bilirubin 0.5 MG/DL (0.2-1.0) Gamma Glutamyl Transpeptidase 21 U/L (5-85) Aspartate Amino Transf (AST/SGOT) 20 U/L (15-37) Alanine Aminotransferase (ALT/SGPT) 21 U/L (12-78) Alkaline Phosphatase 53 U/L (46-116) Troponin I 0.000 ng/mL (0.000-0.056) C-Reactive Protein, Quantitative < 0.4 mg/dL (0.00-0.90) Pro-B-Type Natriuretic Peptide 56 pg/mL (0-125) Total Protein 7.2 G/DL (6.4-8.2) Albumin 3.0 G/DL (3.4-5.0) L Globulin 4.2 g/dL Albumin/Globulin Ratio 0.7 (1.0-2.7) L Vitamin B12 Level 870 PG/ML (193-986) Folate 14.4 NG/ML (8.6-58.9) Thyroid Stimulating Hormone (TSH) 0.422 uiU/mL (0.358-3.740) Free Thyroxine 0.94 NG/DL (0.76-1.46) Urine Opiates Screen Negative (NEGATIVE) Urine Barbiturates Screen Negative (NEGATIVE) Phencyclidine (PCP) Screen Negative (NEGATIVE) Urine Amphetamines Screen Negative (NEGATIVE) Urine Benzodiazepines Screen Negative (NEGATIVE) Urine Cocaine Screen Negative (NEGATIVE) Urine Marijuana (THC) Screen Negative (NEGATIVE) Microbiology Date/Time Source Procedure Growth Status 08/27/19 14:38 Urine,Clean Catch Urine Culture - Preliminary Resulted Objective HEAD AND NECK: Showed no JVD. LUNGS: Clear. CARDIOVASCULAR: Regular S1 and S2 with no gallop. ABDOMEN: Soft. EXTREMITIES: No pitting edema. Charles Mckeon MD Aug 28, 2019 14:45
--- NOTE | 2019-08-28 15:25 | Infectious Diseases Prog Note ---
Assessment/Plan Problems: (1) Pancytopenia, acquired Assessment & Plan: continue current antibiotics , obtain blood culture x 2 , S/ P filgrastim (2) UTI (urinary tract infection) Assessment & Plan: already on aztreonam pending cultures (3) Vaginal discharge Assessment & Plan: will send culture , continue metronidazole and aztreonam, will screen for chlamydia and gonorrhea (4) Dehydration Assessment & Plan: continue IVF for hydration (5) Cervical cancer Assessment & Plan: S/P External radiation Subjective Genitourinary: Reports: vaginal bleed/discharge, dysuria Allergies: Coded Allergies: PENICILLINS (Verified Allergy, Unknown, 08/23/19) VANCOMYCIN (Verified Adverse Reaction, Intermediate, 08/27/19) headache and vomitting All Systems: reviewed and negative except above Objective Vital Signs Last 24 Hour Vital Signs Date Time Temp Pulse Resp B/P (MAP) Pulse Ox O2 Delivery O2 Flow Rate FiO2 08/28/19 14:47 97.7 08/28/19 12:00 97.7 74 20 103/66 (78) 100 08/28/19 09:00 Room Air 08/28/19 08:00 98.0 62 18 108/66 (80) 99 08/28/19 04:00 98.0 80 21 123/73 (90) 97 08/28/19 00:51 98.2 08/28/19 00:00 97.6 72 20 99/61 (74) 98 08/27/19 21:00 Room Air 08/27/19 20:00 98.2 67 20 113/74 (87) 98 08/27/19 18:58 98.4 08/27/19 16:00 98.4 70 17 105/65 (78) 96 08/27/19 15:38 Room Air Height (Feet): 5 Height (Inches): 8.00 Weight (Pounds): 110 General Appearance: no acute distress, cachetic HEENT: normocephalic, atraumatic, anicteric, mucous membranes moist, PERRL Respiratory/Chest: chest wall non-tender, lungs clear, normal breath sounds, no respiratory distress, no accessory muscle use Cardiovascular: normal peripheral pulses, normal rate, regular rhythm, no gallop/murmur, no JVD Abdomen: normal bowel sounds, soft, non tender, no organomegaly, non distended , no mass, no scars Genitourinary: normal external genitalia Extremities: no cyanosis, no clubbing Skin: no rash, no lesions, no ulcers Neurologic/Psychiatric: flume maker II-XII grossly normal, alert, responsive Lymphatic: no neck adenopathy, no groin adenopathy Musculoskeletal: normal muscle bulk, no effusion Microbiology Date/Time Source Procedure Growth Status 08/27/19 14:38 Urine,Clean Catch Urine Culture - Preliminary Resulted Laboratory Tests Test 08/28/19 05:15 08/28/19 05:20 White Blood Count 1.7 K/UL (4.8-10.8) *L Red Blood Count 3.13 M/UL (4.20-5.40) L Hemoglobin 9.1 G/DL (12.0-16.0) L Hematocrit 26.4 % (37.0-47.0) L Mean Corpuscular Volume 85 FL (80-99) Mean Corpuscular Hemoglobin 29.1 PG (27.0-31.0) Mean Corpuscular Hemoglobin Concent 34.4 G/DL (32.0-36.0) Red Cell Distribution Width 18.3 % (11.6-14.8) H Platelet Count 103 K/UL (150-450) L Mean Platelet Volume 5.9 FL (6.5-10.1) L Neutrophils (%) (Auto) % (45.0-75.0) Lymphocytes (%) (Auto) % (20.0-45.0) Monocytes (%) (Auto) % (1.0-10.0) Eosinophils (%) (Auto) % (0.0-3.0) Basophils (%) (Auto) % (0.0-2.0) Differential Total Cells Counted 100 Neutrophils % (Manual) 61 % (45-75) Lymphocytes % (Manual) 19 % (20-45) L Monocytes % (Manual) 20 % (1-10) H Eosinophils % (Manual) 0 % (0-3) Basophils % (Manual) 0 % (0-2) Band Neutrophils 0 % (0-8) Platelet Estimate Decreased L Platelet Morphology Normal Anisocytosis 1+ Sodium Level 139 MMOL/L (136-145) Potassium Level 3.7 MMOL/L (3.5-5.1) Chloride Level 103 MMOL/L (98-107) Carbon Dioxide Level 24 MMOL/L (21-32) Anion Gap 12 mmol/L (5-15) Blood Urea Nitrogen 8 mg/dL (7-18) Creatinine 0.5 MG/DL (0.55-1.30) L Estimat Glomerular Filtration Rate > 60 mL/min (>60) Glucose Level 107 MG/DL (74-106) H Hemoglobin A1c 5.5 % (4.3-6.0) Uric Acid 2.2 MG/DL (2.6-7.2) L Calcium Level 9.3 MG/DL (8.5-10.1) Phosphorus Level 4.5 MG/DL (2.5-4.9) Magnesium Level 1.9 MG/DL (1.8-2.4) Iron Level 98 ug/dL (50-175) Total Iron Binding Capacity 242 ug/dL (250-450) L Percent Iron Saturation 40 % (15-50) Unsaturated Iron Binding 144 ug/dL (112-346) Ferritin 204 NG/ML (8-388) Total Bilirubin 0.5 MG/DL (0.2-1.0) Gamma Glutamyl Transpeptidase 21 U/L (5-85) Aspartate Amino Transf (AST/SGOT) 20 U/L (15-37) Alanine Aminotransferase (ALT/SGPT) 21 U/L (12-78) Alkaline Phosphatase 53 U/L (46-116) Troponin I 0.000 ng/mL (0.000-0.056) C-Reactive Protein, Quantitative < 0.4 mg/dL (0.00-0.90) Pro-B-Type Natriuretic Peptide 56 pg/mL (0-125) Total Protein 7.2 G/DL (6.4-8.2) Albumin 3.0 G/DL (3.4-5.0) L Globulin 4.2 g/dL Albumin/Globulin Ratio 0.7 (1.0-2.7) L Vitamin B12 Level 870 PG/ML (193-986) Folate 14.4 NG/ML (8.6-58.9) Thyroid Stimulating Hormone (TSH) 0.422 uiU/mL (0.358-3.740) Free Thyroxine 0.94 NG/DL (0.76-1.46) Urine Opiates Screen Negative (NEGATIVE) Urine Barbiturates Screen Negative (NEGATIVE) Phencyclidine (PCP) Screen Negative (NEGATIVE) Urine Amphetamines Screen Negative (NEGATIVE) Urine Benzodiazepines Screen Negative (NEGATIVE) Urine Cocaine Screen Negative (NEGATIVE) Urine Marijuana (THC) Screen Negative (NEGATIVE) Current Medications Medications (Trade) Dose Ordered Sig/Kristina Route PRN Reason Start Time Stop Time Status Last Admin Dose Admin Acetaminophen/ Butalbital/ Caffeine (Fioricet) 1 tab Q6H PRN ORAL For Pain 08/27/19 23:45 09/26/19 23:44 Aztreonam 2 gm/ Dextrose 110 ml @ 220 mls/hr Q8HR@0000,0800,1600 IVPB 08/28/19 00:00 09/04/19 00:00 08/28/19 08:05 Dextrose/Sodium Chloride 1,000 ml @ 100 mls/hr Q10H IV 08/27/19 18:00 09/26/19 17:59 08/28/19 08:56 Diphenhydramine HCl (Benadryl) 50 mg Q6H PRN IVP Itching 08/27/19 17:45 09/26/19 17:44 08/27/19 18:53 Ketorolac Tromethamine (Toradol 30mg) 30 mg BID PRN IV For Pain 08/27/19 23:45 09/01/19 23:44 08/28/19 00:21 Loperamide HCl (Imodium) 2 mg Q4H PRN ORAL Diarrhea 08/27/19 17:45 09/26/19 17:44 08/28/19 13:39 Lorazepam (Ativan) 0.5 mg QHS PRN ORAL For Anxiety 08/27/19 21:15 09/03/19 21:14 08/27/19 21:37 Metronidazole 100 ml @ 100 mls/hr Q8HR@0000,0800,1600 IVPB 08/27/19 17:30 09/03/19 17:29 08/28/19 08:57 Morphine Sulfate (Morphine Sulfate) 2 mg Q4H PRN IVP For Pain 08/27/19 23:45 09/03/19 23:44 08/28/19 14:17 Ondansetron HCl (Zofran) 4 mg Q6H PRN IVP Nausea & Vomiting 08/27/19 17:45 09/26/19 17:44 08/28/19 08:47 Pantoprazole (Protonix) 40 mg DAILY IVP 08/28/19 09:00 09/27/19 08:59 08/28/19 08:47 Shira Avitia M.D. Aug 28, 2019 15:25
[2019-08-28 16:00] VITALS: BP 90/53
--- NOTE | 2019-08-28 17:30 | Consultation ---
DATE OF CONSULTATION: 08/28/2019 INFECTIOUS DISEASE CONSULTATION CONSULTING PHYSICIAN: Shira Avitia M.D. REFERRING PHYSICIAN: Ngoc Teresa M.D. REASON FOR CONSULTATION: Pancytopenia and UTI in a cancer patient. Recommendation for antibiotics treatment who is allergic to penicillin. HISTORY OF PRESENT ILLNESS: The patient is a 38-year-old female with past medical history of cervical cancer, stage III status post external radiation therapy, STD in the past with Chlamydia when she was 18, presented to [facility] emergency room for nausea, vomiting, and diarrhea. The patient had persistent nausea, vomiting, and diarrhea for the last three days, unable to tolerate oral intake. Last radiation she had about two weeks ago. She was scheduled for surgery for her cervical cancer later this month. No fever or chills, but generalized weakness. Vaginal discharge with ascitic fluid mainly. No itching. The patient was here recently for the same symptoms and had CT scan showing inflammatory change in the bowel most likely due to radiation exposure and was discharged on oral antibiotics, but unable to take her medication at home due to recurrent vomiting. REVIEW OF SYSTEMS: A 14-point of system reviewed were all negative apart from the one I mentioned above in my History and Physical. PAST MEDICAL HISTORY: Significant for cervical cancer stage III, status post radiation therapy and STD with Chlamydia at age of 18. PAST SURGICAL HISTORY: Negative. FAMILY HISTORY: Noncontributory. SOCIAL HISTORY: She lives with family. Unemployed. Denied using any drugs, tobacco, or alcohol. ALLERGIES: She is allergic to penicillin with airway compromise. MEDICATIONS: The patient was given saline, diphenhydramine, Zofran, and Imodium. PHYSICAL EXAMINATION: VITAL SIGNS: Temperature 98.4, pulse 70, respirations 17, and blood pressure 105/65. Saturation 96% on room air. GENERAL: A young female, malnourished, cachectic and ill-looking, lying in bed, awake and alert, not in acute distress. HEENT: Normocephalic and atraumatic. Pupils are reactive to light equally. Dry oral mucosa. No exudate or thrush. NECK: Supple. No lymphadenopathy. CARDIOVASCULAR: Regular rate and rhythm. No murmur or gallop. LUNGS: Clear bilaterally. No wheezing or rhonchi. ABDOMEN: Soft, nontender, and nondistended. Normal bowel sounds. No hepatosplenomegaly or ascites. EXTREMITIES: No edema or cyanosis. SKIN: No rash. No hives. No ulceration. LABORATORY DATA: Showed white count of 2.9, hemoglobin of 10.4, and platelet count of 121,000. BUN of 9, creatinine of 0.5. Urinalysis showed +3 leukocyte esterase, wbc's 20 to 30. IMAGING: None done during this admission ASSESSMENT AND RECOMMENDATION: 1. Pancytopenia, acquired, suspect due to cancer versus radiation. We will start vancomycin, aztreonam, and Flagyl empirically. Obtain blood culture x2. The patient may need filgrastim to improve her blood count. 2. Urinary tract infection, already on aztreonam, pending culture. 3. Vaginal discharge. We will send culture. Continue metronidazole and aztreonam. 4. Dehydration. Continue intravenous fluid for hydration. 5. Cervical cancer, status post external radiation. Follow up with Oncology. 6. History of STD, now with vaginal discharge. We will screen for chlamydia and gonorrhea. Thank you for the consult. ID will continue to follow. Shira Avitia M.D. DR: ELSA JOB#: [id number] CC:
--- NOTE | 2019-08-28 19:00 | NUR ---
NURSE NOTES: AWAKE ALERT. IN NO ACUTE DISTRESS.
--- NOTE | 2019-08-28 19:30 | History and Physical Report ---
DATE OF ADMISSION: 08/27/2019 HISTORY OF PRESENT ILLNESS: This is a 38-year-old female with a history of cachexia and malnourishment, who presented with the nausea and vomitus for a couple of days. At the time of evaluation, the patient denies any headache. Denies any blurry vision. Denies any fever. Denies any blood in the stool. PAST MEDICAL HISTORY: Cervical cancer stage III. PAST SURGICAL HISTORY: History of fractures. MEDICATIONS: Current hospital medications including but not limited to aztreonam and metronidazole. ALLERGIES: Penicillin and vancomycin. SOCIAL HISTORY: The patient lives by herself. The patient reported that she has children. Denies history of illicit drug abuse, smoking, or alcohol abuse. FAMILY HISTORY: Reviewed. Noncontributory. PHYSICAL EXAMINATION: VITAL SIGNS: Blood pressure 100/80, temperature 98.2, pulse oximetry 97% on room air, and pulse rate 97. HEAD AND NECK: Atraumatic and normocephalic. CHEST: Clear to auscultation. HEART: S1, S2. Regular rate and rhythm. ABDOMEN: Soft. No organomegaly. MUSCULOSKELETAL: No gross lateralized motor deficit. NEUROLOGY: Awake, alert, and oriented x3. LABORATORY DATA: Labs dated August 26, WBC 2.9, hemoglobin 10.4, and platelet 121,000. Sodium 139, potassium 3.8, BUN 9, creatinine 0.5. Urine drug screen is unremarkable and negative. IMAGING: No official report available to review. Results pending. ASSESSMENT: 1. Sepsis. 2. UTI. 3. Acute gastroenteritis. 4. Pancytopenia. 5. History of cervical cancer, staging unknown. 6. Abnormal D-dimer, possibility of a thromboembolic event cannot be excluded. 7. COPD history. 8. GI and DVT prophylaxis. PLAN OF CARE: I will continue with conservative management. Continue with hydration. We will start the patient on the empiric antibiotic treatment. COMMENT: The time of this dictation does not reflect the actual time of encounter. Ngoc Teresa M.D. DR: BRITNEY JOB#: [id number] CC:
--- NOTE | 2019-08-28 19:31 | NUR ---
HAND-OFF: Report given to Darwin NARANJO RN.
[2019-08-28 20:00] VITALS: BP 114/64
[2019-08-28] MEDS ORDERED: LORazepam Inj 2mg/ml 1ml IV PRN (20:07)
[2019-08-28] MEDS: LORazepam Inj 2mg/ml 1ml IV PRN (20:24)
[2019-08-28] MEDS ORDERED: Metoclopramide 10mg/2ml Inj IVPB PRN (23:15)
[2019-08-28] MEDS ORDERED: METOCLOPRAMIDE IVPB PRN (23:30)
[2019-08-28] MEDS ORDERED: NS IVPB PRN (23:30)
[2019-08-29] VITALS: BP 96/63
[2019-08-29] MEDS: D5NS 1,000 ML IV SCH ×3 (00:14→20:00)
[2019-08-29] MEDS: Morphine Sulfate 2mg/ml Inj(IV/IM USE ONLY) IVP PRN ×4 (00:30→20:11)
[2019-08-29] MEDS ORDERED: Metoclopramide 10mg/2ml Inj IVP PRN (01:00)
[2019-08-29 07:10] LABS: HEMATOCRIT 24.8 % (37.0-47.0); HEMOGLOBIN 8.6 G/DL (12.0-16.0); MEAN CORPUSCULAR VOLUME 85 FL (80-99); PLATELET COUNT 85 K/UL (150-450); RED BLOOD COUNT 2.92 M/UL (4.20-5.40); RED CELL DISTRIBUTION WIDTH 18.2 % (11.6-14.8)
--- NOTE | 2019-08-29 07:20 | NUR ---
NURSE NOTES: Pt. A/A/Ox4, on room air, ambulatory. in bed with HOB elevated. no N/V noted. breathing is even and unlabored. IV access right hand 22g noted, asymptomatic, intact, and patent. Bed is low and locked, side rails x2 up, and call light is in reach. Will continue to monitor.
[2019-08-29 07:44] LABS: ALANINE AMINOTRANSFERASE 17 U/L (12-78); ALBUMIN 2.7 G/DL (3.4-5.0); ALBUMIN/GLOBULIN RATIO 0.7 (1.0-2.7); ALKALINE PHOSPHATASE 50 U/L (46-116); ANION GAP 7 mmol/L (5-15); ASPARTATE AMINO TRANSFERASE 13 U/L (15-37); BILIRUBIN,TOTAL 0.3 MG/DL (0.2-1.0); BLOOD UREA NITROGEN 4 mg/dL (7-18); CALCIUM 8.9 MG/DL (8.5-10.1); CARBON DIOXIDE 30 MMOL/L (21-32); CHLORIDE 106 MMOL/L (98-107); CREATININE 0.6 MG/DL (0.55-1.30); POTASSIUM 3.1 MMOL/L (3.5-5.1); SODIUM 142 MMOL/L (136-145)
[2019-08-29 08:00] VITALS: BP 102/62
--- NOTE | 2019-08-29 08:26 | General Progress Note ---
Assessment/Plan Assessment/Plan: cervical Ca radiation enteritis diarrhea wt loss pancytopenia rectal bleed>>> ? hemorrhoids ivf pain control stool studies anusol HC prn zofran ID in put appreciated fu cardiology Subjective ROS Limited/Unobtainable: Yes Allergies: Coded Allergies: PENICILLINS (Verified Allergy, Unknown, 08/23/19) VANCOMYCIN (Verified Adverse Reaction, Intermediate, 08/27/19) headache and vomitting Subjective vomited last night had bloody stool Objective Last 24 Hour Vital Signs Date Time Temp Pulse Resp B/P (MAP) Pulse Ox O2 Delivery O2 Flow Rate FiO2 08/29/19 00:00 98.1 72 18 96/63 (74) 99 08/28/19 21:00 Room Air 08/28/19 20:00 98.1 71 18 114/64 (81) 99 08/28/19 19:17 98.4 08/28/19 16:00 98.4 69 18 90/53 (65) 100 08/28/19 12:00 97.7 74 20 103/66 (78) 100 08/28/19 09:00 Room Air Intake and Output 08/28/19 08/29/19 19:00 07:00 Intake Total 1640 ml Balance 1640 ml Intake Oral 520 ml IV Total 1120 ml # Voids 2 # Bowel Movements 3 Laboratory Tests 08/29/19 04:55: White Blood Count 6.0#, Red Blood Count 2.92L, Hemoglobin 8.6L, Hematocrit 24.8L , Mean Corpuscular Volume 85, Mean Corpuscular Hemoglobin 29.4, Mean Corpuscular Hemoglobin Concent 34.6, Red Cell Distribution Width 18.2H, Platelet Count 85L, Mean Platelet Volume 7.1, Neutrophils (%) (Auto) , Lymphocytes (%) (Auto) , Monocytes (%) (Auto) , Eosinophils (%) (Auto) , Basophils (%) (Auto) , Neutrophils % (Manual) [Pending], Lymphocytes % (Manual) [Pending], Platelet Estimate [Pending], Platelet Morphology [Pending], Sodium Level 142, Potassium Level 3.1L, Chloride Level 106, Carbon Dioxide Level 30, Anion Gap 7, Blood Urea Nitrogen 4L, Creatinine 0.6, Estimat Glomerular Filtration Rate > 60, Glucose Level 92, Calcium Level 8.9, Total Bilirubin 0.3, Aspartate Amino Transf (AST/SGOT) 13L, Alanine Aminotransferase (ALT/SGPT) 17, Alkaline Phosphatase 50, Total Protein 6.5, Albumin 2.7L, Globulin 3.8, Albumin/ Globulin Ratio 0.7L Height (Feet): 5 Height (Inches): 8.00 Weight (Pounds): 110 General Appearance: alert EENT: normal ENT inspection Neck: supple Cardiovascular: normal rate Respiratory/Chest: decreased breath sounds Abdomen: normal bowel sounds, non tender, soft Extremities: non-tender Vinny Kennedy MD Aug 29, 2019 08:26
[2019-08-29] MEDS: Aztreonam Inj 2 GM in D5W 110 ML IVPB SCH ×3 (08:38→23:50)
[2019-08-29] MEDS: Pantoprazole Inj IVP SCH (08:39)
[2019-08-29] MEDS ORDERED: Tubing IV Secondary IV ONE (08:59)
[2019-08-29] MEDS ORDERED: Hydrocortisone 25mg supp RECTAL SCH (09:00)
[2019-08-29] MEDS ORDERED: D5NS 1000ml IV ONE (09:09)
[2019-08-29 12:00] VITALS: BP 114/65
--- NOTE | 2019-08-29 12:28 | NUR ---
NURSE NOTES: Kcl 40 meq po x1 given for K+3.1. will cont to monitor.
--- NOTE | 2019-08-29 13:06 | NUR ---
RD ASSESSMENT & RECOMMENDATIONS SEE CARE ACTIVITY FOR COMPLETE ASSESSMENT DAILY ESTIMATED NEEDS: Needs based on Ca, wt loss 50kg 30-40 kcals/kg 4242-4438 total kcals 1-2 g protein/kg 50-100 g total protein 25-30 mL/kg 3037-1871 total fluid mLs NUTRITION DIAGNOSIS: Increased kcal and pro needs r/t cancer and wt loss as evidenced by pt w/ cervical cancer w/ 25# wt loss, currently underweight per guidelines, s/p radiation, adm w/ N/V. CURRENT DIET:Low Fiber/ Low Residue PO DIET RECOMMENDATIONS: Maintain current diet ADDITIONAL RECOMMENDATIONS: 1) Limit dairy 2) Pt does not tolerate Ensure 3) Snacks as tolerated in b/w meals 4) Obtain a STANDING WEIGHT 5) lytes daily w/ emesis
--- NOTE | 2019-08-29 15:59 | Infectious Diseases Prog Note ---
Assessment/Plan Problems: (1) Pancytopenia, acquired Assessment & Plan: suspect due to bone marrow suppression , continue current antibiotics , monitor blood culture x 2 , S/P filgrastim (2) UTI (urinary tract infection) Assessment & Plan: culture grew small colony most likely contaminants , already on aztreonam pending blood culture (3) Vaginal discharge Assessment & Plan: will send culture , continue metronidazole and aztreonam, will screen for chlamydia and gonorrhea (4) Dehydration Assessment & Plan: continue IVF for hydration (5) Cervical cancer Assessment & Plan: S/P External radiation Subjective Constitutional: Reports: fatigue HEENT: Reports: no symptoms Respiratory: Reports: no symptoms Breasts: Reports: no symptoms Cardiovascular: Reports: no symptoms Gastrointestinal/Abdominal: Reports: diarrhea, blood in stool, bloating Genitourinary: Reports: vaginal bleed/discharge Neurologic: Reports: no symptoms Psychiatric: Reports: no symptoms Skin: Reports: no symptoms Endocrine: Reports: no symptoms Hematologic: Reports: no symptoms Musculoskeletal: Reports: no symptoms Allergies: Coded Allergies: PENICILLINS (Verified Allergy, Unknown, 08/23/19) VANCOMYCIN (Verified Adverse Reaction, Intermediate, 08/27/19) headache and vomitting Objective Vital Signs Last 24 Hour Vital Signs Date Time Temp Pulse Resp B/P (MAP) Pulse Ox O2 Delivery O2 Flow Rate FiO2 08/29/19 12:00 97.5 65 18 114/65 (81) 99 08/29/19 11:55 98.1 08/29/19 09:00 Room Air 08/29/19 08:00 98.1 62 18 102/62 (75) 99 08/29/19 00:00 98.1 72 18 96/63 (74) 99 08/28/19 21:00 Room Air 08/28/19 20:00 98.1 71 18 114/64 (81) 99 08/28/19 16:00 98.4 69 18 90/53 (65) 100 Height (Feet): 5 Height (Inches): 8.00 Weight (Pounds): 110 General Appearance: no acute distress, cachetic HEENT: normocephalic, atraumatic, anicteric, mucous membranes moist, PERRL Respiratory/Chest: chest wall non-tender, lungs clear, normal breath sounds, no respiratory distress, no accessory muscle use Cardiovascular: normal peripheral pulses, normal rate, regular rhythm, no gallop/murmur, no JVD Abdomen: normal bowel sounds, soft, non tender, no organomegaly, non distended , no mass, no scars Genitourinary: normal external genitalia Extremities: no cyanosis, no clubbing Skin: no rash, no lesions, no ulcers Neurologic/Psychiatric: alert, responsive Lymphatic: no neck adenopathy, no groin adenopathy Musculoskeletal: normal muscle bulk, no effusion Microbiology Date/Time Source Procedure Growth Status 08/28/19 05:20 Vaginal Genital Culture - Preliminary Staphylococcus Aureus Resulted 08/28/19 12:05 Stool Clostridium difficile Toxin Assay - Final Complete 08/27/19 14:38 Urine,Clean Catch Urine Culture - Preliminary Gram Negative Bacillus 1 Resulted Laboratory Tests Test 08/29/19 04:55 White Blood Count 6.0 K/UL (4.8-10.8) # Red Blood Count 2.92 M/UL (4.20-5.40) L Hemoglobin 8.6 G/DL (12.0-16.0) L Hematocrit 24.8 % (37.0-47.0) L Mean Corpuscular Volume 85 FL (80-99) Mean Corpuscular Hemoglobin 29.4 PG (27.0-31.0) Mean Corpuscular Hemoglobin Concent 34.6 G/DL (32.0-36.0) Red Cell Distribution Width 18.2 % (11.6-14.8) H Platelet Count 85 K/UL (150-450) L Mean Platelet Volume 7.1 FL (6.5-10.1) Neutrophils (%) (Auto) % (45.0-75.0) Lymphocytes (%) (Auto) % (20.0-45.0) Monocytes (%) (Auto) % (1.0-10.0) Eosinophils (%) (Auto) % (0.0-3.0) Basophils (%) (Auto) % (0.0-2.0) Differential Total Cells Counted 100 Neutrophils % (Manual) 81 % (45-75) H Lymphocytes % (Manual) 8 % (20-45) L Monocytes % (Manual) 11 % (1-10) H Eosinophils % (Manual) 0 % (0-3) Basophils % (Manual) 0 % (0-2) Band Neutrophils 0 % (0-8) Platelet Estimate Decreased L Platelet Morphology Normal Hypochromasia 1+ Anisocytosis 1+ Sodium Level 142 MMOL/L (136-145) Potassium Level 3.1 MMOL/L (3.5-5.1) L Chloride Level 106 MMOL/L (98-107) Carbon Dioxide Level 30 MMOL/L (21-32) Anion Gap 7 mmol/L (5-15) Blood Urea Nitrogen 4 mg/dL (7-18) L Creatinine 0.6 MG/DL (0.55-1.30) Estimat Glomerular Filtration Rate > 60 mL/min (>60) Glucose Level 92 MG/DL (74-106) Calcium Level 8.9 MG/DL (8.5-10.1) Total Bilirubin 0.3 MG/DL (0.2-1.0) Aspartate Amino Transf (AST/SGOT) 13 U/L (15-37) L Alanine Aminotransferase (ALT/SGPT) 17 U/L (12-78) Alkaline Phosphatase 50 U/L (46-116) Total Protein 6.5 G/DL (6.4-8.2) Albumin 2.7 G/DL (3.4-5.0) L Globulin 3.8 g/dL Albumin/Globulin Ratio 0.7 (1.0-2.7) L Current Medications Medications (Trade) Dose Ordered Sig/Kristina Route PRN Reason Start Time Stop Time Status Last Admin Dose Admin Acetaminophen/ Butalbital/ Caffeine (Fioricet) 1 tab Q6H PRN ORAL For Pain 08/27/19 23:45 09/26/19 23:44 Aztreonam 2 gm/ Dextrose 110 ml @ 220 mls/hr Q8HR@0000,0800,1600 IVPB 08/28/19 00:00 09/04/19 00:00 08/29/19 08:38 Dextrose/Sodium Chloride 1,000 ml @ 100 mls/hr Q10H IV 08/27/19 18:00 09/26/19 17:59 08/29/19 08:41 Diphenhydramine HCl (Benadryl) 50 mg Q6H PRN IVP Itching 08/27/19 17:45 09/26/19 17:44 08/27/19 18:53 Hydrocortisone (Anusol HC) 1 applic TWICE A DAY RECTAL 08/29/19 18:00 09/28/19 17:59 Ketorolac Tromethamine (Toradol 30mg) 30 mg BID PRN IV For Pain 08/27/19 23:45 09/01/19 23:44 08/28/19 00:21 Loperamide HCl (Imodium) 2 mg Q4H PRN ORAL Diarrhea 08/27/19 17:45 09/26/19 17:44 08/28/19 18:57 Lorazepam (Ativan 2mg/ml 1ml) 0.5 mg QHS PRN IV For Anxiety 08/28/19 20:15 09/04/19 20:06 08/28/19 20:24 Lorazepam (Ativan) 0.5 mg QHS PRN ORAL For Anxiety 08/27/19 21:15 09/03/19 21:14 08/27/19 21:37 Metoclopramide HCl (Reglan) 10 mg Q8H PRN IVP Nausea & Vomiting 08/29/19 01:00 09/28/19 00:59 Metronidazole 100 ml @ 100 mls/hr Q8HR@0000,0800,1600 IVPB 08/27/19 17:30 09/03/19 17:29 08/29/19 08:39 Morphine Sulfate (Morphine Sulfate) 2 mg Q4H PRN IVP For Pain 08/27/19 23:45 09/03/19 23:44 08/29/19 11:25 Ondansetron HCl (Zofran) 4 mg Q6H PRN IVP Nausea & Vomiting 08/27/19 17:45 09/26/19 17:44 08/29/19 08:38 Pantoprazole (Protonix) 40 mg DAILY IVP 08/28/19 09:00 09/27/19 08:59 08/29/19 08:39 Shira Avitia M.D. Aug 29, 2019 15:59
[2019-08-29 16:00] VITALS: BP 109/66
[2019-08-29] MEDS: Ketorolac 30mg Inj IV PRN (16:31)
--- NOTE | 2019-08-29 19:03 | NUR ---
HAND-OFF: Report given to Maegan.
[2019-08-29 20:00] VITALS: BP 119/76
--- NOTE | 2019-08-29 20:55 | General Progress Note ---
Assessment/Plan Assessment/Plan: S: I am ok O: seems comfortabl, pain is well controlled. PHYSICAL EXAMINATION: HEAD AND NECK: Atraumatic and normocephalic. CHEST: Clear to auscultation.HEART: S1, S2. Regular rate and rhythm. ABDOMEN: Soft. No organomegaly.MUSCULOSKELETAL: No gross lateralized motor deficit. NEUROLOGY: Awake, alert, and oriented x3. LABORATORY DATA: Labs dated August 28 reviewed Urine drug screen is unremarkable and negative. IMAGING: No official report available to review. Results pending. ASSESSMENT: 1. Sepsis. 2. UTI- Gram negative 3. Acute gastroenteritis. 4. Pancytopenia. 5. History of cervical cancer, staging unknown. 6. Abnormal D-dimer, likely cancer related, no evidence of active acute VTE event. 7. COPD history. 8. GI and DVT prophylaxis. PLAN OF CARE: I will continue with conservative management. Continue with current IV antibiotic and hydration. Subjective Allergies: Coded Allergies: PENICILLINS (Verified Allergy, Unknown, 08/23/19) VANCOMYCIN (Verified Adverse Reaction, Intermediate, 08/27/19) headache and vomitting Objective Last 24 Hour Vital Signs Date Time Temp Pulse Resp B/P (MAP) Pulse Ox O2 Delivery O2 Flow Rate FiO2 08/29/19 17:01 98.1 08/29/19 16:00 98.1 72 20 109/66 (80) 100 08/29/19 12:00 97.5 65 18 114/65 (81) 99 08/29/19 11:55 98.1 08/29/19 09:00 Room Air 08/29/19 08:00 98.1 62 18 102/62 (75) 99 08/29/19 00:00 98.1 72 18 96/63 (74) 99 08/28/19 21:00 Room Air Intake and Output 08/28/19 08/29/19 19:00 07:00 Intake Total 1640 ml Balance 1640 ml Intake Oral 520 ml IV Total 1120 ml # Voids 2 # Bowel Movements 3 Laboratory Tests 08/29/19 04:55: White Blood Count 6.0#, Red Blood Count 2.92L, Hemoglobin 8.6L, Hematocrit 24.8L , Mean Corpuscular Volume 85, Mean Corpuscular Hemoglobin 29.4, Mean Corpuscular Hemoglobin Concent 34.6, Red Cell Distribution Width 18.2H, Platelet Count 85L, Mean Platelet Volume 7.1, Neutrophils (%) (Auto) , Lymphocytes (%) (Auto) , Monocytes (%) (Auto) , Eosinophils (%) (Auto) , Basophils (%) (Auto) , Differential Total Cells Counted 100, Neutrophils % ( Manual) 81H, Lymphocytes % (Manual) 8L, Monocytes % (Manual) 11H, Eosinophils % (Manual) 0, Basophils % (Manual) 0, Band Neutrophils 0, Platelet Estimate DecreasedL, Platelet Morphology Normal, Hypochromasia 1+, Anisocytosis 1+, Sodium Level 142, Potassium Level 3.1L, Chloride Level 106, Carbon Dioxide Level 30, Anion Gap 7, Blood Urea Nitrogen 4L, Creatinine 0.6, Estimat Glomerular Filtration Rate > 60, Glucose Level 92, Calcium Level 8.9, Total Bilirubin 0.3, Aspartate Amino Transf (AST/SGOT) 13L, Alanine Aminotransferase ( ALT/SGPT) 17, Alkaline Phosphatase 50, Total Protein 6.5, Albumin 2.7L, Globulin 3.8, Albumin/Globulin Ratio 0.7L Height (Feet): 5 Height (Inches): 8.00 Weight (Pounds): 110 Ngoc Teresa MD Aug 29, 2019 20:55
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
[2019-08-29] MEDS: LORazepam Inj 2mg/ml 1ml IV PRN (22:05)
[2019-08-30] VITALS: BP 117/61
[2019-08-30] MEDS: D5NS 1,000 ML IV SCH ×3 (03:26→23:54)
[2019-08-30 04:00] VITALS: BP 118/69
[2019-08-30] MEDS: Morphine Sulfate 2mg/ml Inj(IV/IM USE ONLY) IVP PRN ×4 (06:09→23:51)
--- NOTE | 2019-08-30 06:33 | Hematology/Onc Progress Note ---
Assessment/Plan Assessment/Plan Assessment and recs # Pancytopenia -- multiple etiologies could be related to underlying liver disease, medication-induced, infection versus viral syndrome versus underlying bone marrow cause --> IN THIS CASE DUE TO RADIATION recently received, has received a total of 29 sessions and protracted cytopenias for these patients are common --> peripheral smear has been ordered and does not show significant abnormalities --> Medications have been reviewed --> Continue to monitor for improvement, trend cbc --> Hep panel and HIV have been ordered --> US abd ordered to r/o cirrhosis and hepatosplenomegaly --> may consider --> reverse isolation if ANC is <2000 --> Give neupogen if ANC <1000 --> Transfuse if hgb <7, with 1 unit prbc --> 08/27 neupogen 300mcg sq x 1 given --> plt 121-->85k # Cervical cancer stage III s/p radiation only --> needs to follow outpatient onco Dr. Maribeth Campbell at [facility] --> has appointment to f/u # Sepsis with uti gram neg --> smear has been reviewed --> abx received # UTI- Gram negative --> abx have been given # Acute gastroenteritis. --> per gi Abnormal D-dimer, likely cancer related, no evidence of active acute VTE event. # COPD history # Intractable vomiting --> zofran/reglan prn # Dehydration -> ivf given The timing of this note does not necessarily reflect the time of the patient was seen. Greatly appreciate consultation. Subjective HEENT: Denies: no symptoms, eye pain, blurred vision, tearing, double vision, ear pain, ear discharge, nose pain, nose congestion, throat pain, throat swelling, mouth pain, mouth swelling, other Cardiovascular: Denies: no symptoms, chest pain, edema, irregular heart rate, lightheadedness, palpitations, syncope, other Respiratory: Denies: no symptoms, cough, shortness of breath, SOB with excertion, SOB at rest, sputum, wheezing, other Gastrointestinal/Abdominal: Denies: no symptoms, abdomen distended, abdominal pain, black stools, tarry stools, blood in stool, constipated, diarrhea, difficulty swallowing, nausea, poor appetite, poor fluid intake, rectal bleeding , vomiting, other Neurologic/Psychiatric: Denies: no symptoms, anxiety, depressed, emotional problems, headache, numbness, paresthesia, pre-existing deficit, seizure, tingling, tremors, weakness, other Endocrine: Denies: no symptoms, excessive sweating, flushing, intolerance to cold, intolerance to heat, increased hunger, increased thirst, increased urine, unexplained weight gain, unexplained weight loss, other Hematologic/Lymphatic: Denies: no symptoms, anemia, easy bleeding, easy bruising, adenopathy, other Allergies: Coded Allergies: PENICILLINS (Verified Allergy, Unknown, 08/23/19) VANCOMYCIN (Verified Adverse Reaction, Intermediate, 08/27/19) headache and vomitting Subjective 08/29: no major events, labs have been reviewed, no bleeding, smear is noted Objective Objective Current Medications Medications (Trade) Dose Ordered Sig/Kristina Route PRN Reason Start Time Stop Time Status Last Admin Dose Admin Acetaminophen/ Butalbital/ Caffeine (Fioricet) 1 tab Q6H PRN ORAL For Pain 08/27/19 23:45 09/26/19 23:44 Aztreonam 2 gm/ Dextrose 110 ml @ 220 mls/hr Q8HR@0000,0800,1600 IVPB 08/28/19 00:00 09/04/19 00:00 08/29/19 23:50 Dextrose/Sodium Chloride 1,000 ml @ 100 mls/hr Q10H IV 08/27/19 18:00 09/26/19 17:59 08/30/19 03:26 Diphenhydramine HCl (Benadryl) 50 mg Q6H PRN IVP Itching 08/27/19 17:45 09/26/19 17:44 08/27/19 18:53 Hydrocortisone (Anusol HC) 1 applic TWICE A DAY RECTAL 08/29/19 18:00 09/28/19 17:59 08/29/19 17:33 Ketorolac Tromethamine (Toradol 30mg) 30 mg BID PRN IV For Pain 08/27/19 23:45 09/01/19 23:44 08/29/19 16:31 Loperamide HCl (Imodium) 2 mg Q4H PRN ORAL Diarrhea 08/27/19 17:45 09/26/19 17:44 08/28/19 18:57 Lorazepam (Ativan 2mg/ml 1ml) 0.5 mg QHS PRN IV For Anxiety 08/28/19 20:15 09/04/19 20:06 08/29/19 22:05 Lorazepam (Ativan) 0.5 mg QHS PRN ORAL For Anxiety 08/27/19 21:15 09/03/19 21:14 08/27/19 21:37 Metoclopramide HCl (Reglan) 10 mg Q8H PRN IVP Nausea & Vomiting 08/29/19 01:00 09/28/19 00:59 Metronidazole 100 ml @ 100 mls/hr Q8HR@0000,0800,1600 IVPB 08/27/19 17:30 09/03/19 17:29 08/29/19 23:50 Morphine Sulfate (Morphine Sulfate) 2 mg Q4H PRN IVP For Pain 08/27/19 23:45 09/03/19 23:44 08/30/19 06:09 Ondansetron HCl (Zofran) 4 mg Q6H PRN IVP Nausea & Vomiting 08/27/19 17:45 09/26/19 17:44 08/30/19 06:09 Pantoprazole (Protonix) 40 mg DAILY IVP 08/28/19 09:00 09/27/19 08:59 08/29/19 08:39 Last 24 Hour Vital Signs Date Time Temp Pulse Resp B/P (MAP) Pulse Ox O2 Delivery O2 Flow Rate FiO2 08/30/19 04:00 98.3 79 18 118/69 (85) 100 08/30/19 00:00 97.9 77 20 117/61 (79) 100 08/29/19 21:00 Room Air 08/29/19 20:00 97.8 70 20 119/76 (90) 100 08/29/19 17:01 98.1 08/29/19 16:00 98.1 72 20 109/66 (80) 100 08/29/19 12:00 97.5 65 18 114/65 (81) 99 08/29/19 11:55 98.1 08/29/19 09:00 Room Air 08/29/19 08:00 98.1 62 18 102/62 (75) 99 08/29/19 00:00 98.1 72 18 96/63 (74) 99 08/28/19 21:00 Room Air 08/28/19 20:00 98.1 71 18 114/64 (81) 99 08/28/19 16:00 98.4 69 18 90/53 (65) 100 08/28/19 12:00 97.7 74 20 103/66 (78) 100 08/28/19 09:00 Room Air 08/28/19 08:00 98.0 62 18 108/66 (80) 99 Intake and Output 08/29/19 08/30/19 19:00 07:00 Intake Total 840 ml Balance 840 ml IV Total 840 ml # Voids 2 # Bowel Movements 3 Labs Test 08/27/19 12:20 08/27/19 14:38 08/28/19 05:15 08/28/19 05:20 White Blood Count 2.9 K/UL (4.8-10.8) 1.7 K/UL (4.8-10.8) Red Blood Count 3.67 M/UL (4.20-5.40) 3.13 M/UL (4.20-5.40) Hemoglobin 10.4 G/DL (12.0-16.0) 9.1 G/DL (12.0-16.0) Hematocrit 31.0 % (37.0-47.0) 26.4 % (37.0-47.0) Mean Corpuscular Volume 84 FL (80-99) 85 FL (80-99) Mean Corpuscular Hemoglobin 28.4 PG (27.0-31.0) 29.1 PG (27.0-31.0) Mean Corpuscular Hemoglobin Concent 33.7 G/DL (32.0-36.0) 34.4 G/DL (32.0-36.0) Red Cell Distribution Width 18.2 % (11.6-14.8) 18.3 % (11.6-14.8) Platelet Count 121 K/UL (150-450) 103 K/UL (150-450) Mean Platelet Volume 6.0 FL (6.5-10.1) 5.9 FL (6.5-10.1) Neutrophils (%) (Auto) % (45.0-75.0) % (45.0-75.0) Lymphocytes (%) (Auto) % (20.0-45.0) % (20.0-45.0) Monocytes (%) (Auto) % (1.0-10.0) % (1.0-10.0) Eosinophils (%) (Auto) % (0.0-3.0) % (0.0-3.0) Basophils (%) (Auto) % (0.0-2.0) % (0.0-2.0) Differential Total Cells Counted 100 100 Neutrophils % (Manual) 74 % (45-75) 61 % (45-75) Lymphocytes % (Manual) 10 % (20-45) 19 % (20-45) Monocytes % (Manual) 13 % (1-10) 20 % (1-10) Eosinophils % (Manual) 3 % (0-3) 0 % (0-3) Basophils % (Manual) 0 % (0-2) 0 % (0-2) Band Neutrophils 0 % (0-8) 0 % (0-8) Platelet Estimate Decreased Decreased Platelet Morphology Normal Normal Red Blood Cell Morphology Hypochromasia 1+ Sodium Level 139 MMOL/L (136-145) 139 MMOL/L (136-145) Potassium Level 3.8 MMOL/L (3.5-5.1) 3.7 MMOL/L (3.5-5.1) Chloride Level 100 MMOL/L (98-107) 103 MMOL/L (98-107) Carbon Dioxide Level 27 MMOL/L (21-32) 24 MMOL/L (21-32) Anion Gap 12 mmol/L (5-15) 12 mmol/L (5-15) Blood Urea Nitrogen 9 mg/dL (7-18) 8 mg/dL (7-18) Creatinine 0.5 MG/DL (0.55-1.30) 0.5 MG/DL (0.55-1.30) Estimat Glomerular Filtration Rate > 60 mL/min (>60) > 60 mL/min (>60) Glucose Level 98 MG/DL (74-106) 107 MG/DL (74-106) Calcium Level 10.0 MG/DL (8.5-10.1) 9.3 MG/DL (8.5-10.1) Total Bilirubin 0.5 MG/DL (0.2-1.0) 0.5 MG/DL (0.2-1.0) Aspartate Amino Transf (AST/SGOT) 20 U/L (15-37) 20 U/L (15-37) Alanine Aminotransferase (ALT/SGPT) 22 U/L (12-78) 21 U/L (12-78) Alkaline Phosphatase 64 U/L (46-116) 53 U/L (46-116) Total Protein 8.5 G/DL (6.4-8.2) 7.2 G/DL (6.4-8.2) Albumin 3.7 G/DL (3.4-5.0) 3.0 G/DL (3.4-5.0) Globulin 4.8 g/dL 4.2 g/dL Albumin/Globulin Ratio 0.8 (1.0-2.7) 0.7 (1.0-2.7) Lipase 81 U/L (73-393) D-Dimer 0.70 mg/L FEU (0.00-0.49) Urine Color Yellow Urine Appearance Clear Urine pH 7 (4.5-8.0) Urine Specific [place] 1.005 (1.005-1.035) Urine Protein 1+ (NEGATIVE) Urine Glucose (UA) Negative (NEGATIVE) Urine Ketones Negative (NEGATIVE) Urine Blood 2+ (NEGATIVE) Urine Nitrite Negative (NEGATIVE) Urine Bilirubin Negative (NEGATIVE) Urine Urobilinogen Normal MG/DL (0.0-1.0) Urine Leukocyte Esterase 3+ (NEGATIVE) Urine RBC 2-4 /HPF (0 - 2) Urine WBC 20-30 /HPF (0 - 2) Urine Squamous Epithelial Cells Few /LPF (NONE/OCC) Urine Bacteria Few /HPF (NONE) Urine HCG, Qualitative Negative (NEGATIVE) Anisocytosis 1+ Hemoglobin A1c 5.5 % (4.3-6.0) Uric Acid 2.2 MG/DL (2.6-7.2) Phosphorus Level 4.5 MG/DL (2.5-4.9) Magnesium Level 1.9 MG/DL (1.8-2.4) Iron Level 98 ug/dL (50-175) Total Iron Binding Capacity 242 ug/dL (250-450) Percent Iron Saturation 40 % (15-50) Unsaturated Iron Binding 144 ug/dL (112-346) Ferritin 204 NG/ML (8-388) Gamma Glutamyl Transpeptidase 21 U/L (5-85) Troponin I 0.000 ng/mL (0.000-0.056) C-Reactive Protein, Quantitative < 0.4 mg/dL (0.00-0.90) Pro-B-Type Natriuretic Peptide 56 pg/mL (0-125) Vitamin B12 Level 870 PG/ML (193-986) Folate 14.4 NG/ML (8.6-58.9) Thyroid Stimulating Hormone (TSH) 0.422 uiU/mL (0.358-3.740) Free Thyroxine 0.94 NG/DL (0.76-1.46) Urine Opiates Screen Negative (NEGATIVE) Urine Barbiturates Screen Negative (NEGATIVE) Phencyclidine (PCP) Screen Negative (NEGATIVE) Urine Amphetamines Screen Negative (NEGATIVE) Urine Benzodiazepines Screen Negative (NEGATIVE) Urine Cocaine Screen Negative (NEGATIVE) Urine Marijuana (THC) Screen Negative (NEGATIVE) Test 08/29/19 04:55 White Blood Count 6.0 K/UL (4.8-10.8) Red Blood Count 2.92 M/UL (4.20-5.40) Hemoglobin 8.6 G/DL (12.0-16.0) Hematocrit 24.8 % (37.0-47.0) Mean Corpuscular Volume 85 FL (80-99) Mean Corpuscular Hemoglobin 29.4 PG (27.0-31.0) Mean Corpuscular Hemoglobin Concent 34.6 G/DL (32.0-36.0) Red Cell Distribution Width 18.2 % (11.6-14.8) Platelet Count 85 K/UL (150-450) Mean Platelet Volume 7.1 FL (6.5-10.1) Neutrophils (%) (Auto) % (45.0-75.0) Lymphocytes (%) (Auto) % (20.0-45.0) Monocytes (%) (Auto) % (1.0-10.0) Eosinophils (%) (Auto) % (0.0-3.0) Basophils (%) (Auto) % (0.0-2.0) Differential Total Cells Counted 100 Neutrophils % (Manual) 81 % (45-75) Lymphocytes % (Manual) 8 % (20-45) Monocytes % (Manual) 11 % (1-10) Eosinophils % (Manual) 0 % (0-3) Basophils % (Manual) 0 % (0-2) Band Neutrophils 0 % (0-8) Platelet Estimate Decreased Platelet Morphology Normal Hypochromasia 1+ Anisocytosis 1+ Sodium Level 142 MMOL/L (136-145) Potassium Level 3.1 MMOL/L (3.5-5.1) Chloride Level 106 MMOL/L (98-107) Carbon Dioxide Level 30 MMOL/L (21-32) Anion Gap 7 mmol/L (5-15) Blood Urea Nitrogen 4 mg/dL (7-18) Creatinine 0.6 MG/DL (0.55-1.30) Estimat Glomerular Filtration Rate > 60 mL/min (>60) Glucose Level 92 MG/DL (74-106) Calcium Level 8.9 MG/DL (8.5-10.1) Total Bilirubin 0.3 MG/DL (0.2-1.0) Aspartate Amino Transf (AST/SGOT) 13 U/L (15-37) Alanine Aminotransferase (ALT/SGPT) 17 U/L (12-78) Alkaline Phosphatase 50 U/L (46-116) Total Protein 6.5 G/DL (6.4-8.2) Albumin 2.7 G/DL (3.4-5.0) Globulin 3.8 g/dL Albumin/Globulin Ratio 0.7 (1.0-2.7) Height (Feet): 5 Height (Inches): 8.00 Weight (Pounds): 110 Objective Physical Exam: Vitals: reviewed General: NAD HEENT: nc, at Neck: supple Chest: clear breath sounds bilaterally Cardiovascular: RRR, no s3, s4 Abdomen: soft, nontender, nd Extremities: no cce, normal range of motion Neuro: alert and oriented Jesus Dunlap MD Aug 30, 2019 06:33
[2019-08-30 08:33] VITALS: BP 111/65
--- NOTE | 2019-08-30 08:38 | NUR ---
CASE MANAGEMENT: INITIAL REVIEW 38YR OLD FEMALE FROM HOME CC: NAUSEA / VOMITING / DIARRHEA SI:INTRACTABLE VOMITING . DEHYDRATION 98.2 97 18 99/69 97% ON RA WBC 2.9 H/H 10.4/31.0 IS:IV NS BOLUS X1 IV NS 1/2 BOLUS X1 IV ZOFRAN X1 IV MORPHINE SULFATE X1 \: 3E MED SURG UNIT DCP: HOME WHEN STABLE PLAN: 2D ECHO EKG CASE MANAGEMENT:REVIEW 08/28/19 SI:INTRACTABLE VOMITING . DEHYDRATION 97.7 74 20 103/66 100% ON RA WBC 1.7 H/H 9.7/26.4 PLT 103 CREAT 0.5 URIC ACID IS:IV NS@100ML/HR IV METRONIDAZOLE TID IV AZTREONAM TID IV PROTONIX QD IMODIUM Q4HR/PRN IV ZOFRAN Q6/PRN IV MORPHINE Q4HR/PRN \: 3E MED SURG UNIT DCP: HOME WHEN STABLE PLAN: MONITOR HH MONITOR WBC VENOUS DUPLEX CASE MANAGEMENT:REVIEW 08/29/19 SI:INTRACTABLE VOMITING . DEHYDRATION 97.5 65 18 114/65 99% ON RA H/H 8.6/24.8 PLT 85 BUN 4 K+ 3.1 IS:IV NS@100ML/HR IV METRONIDAZOLE TID IV AZTREONAM TID IV PROTONIX QD IMODIUM Q4HR/PRN IV ZOFRAN Q6/PRN IV MORPHINE Q4HR/PRN \: 3E MED SURG UNIT DCP: HOME WHEN STABLE CASE MANAGEMENT:REVIEW 08/30/19 SI:INTRACTABLE VOMITING . DEHYDRATION 98.1 62 18 102/62 99% ON RA IS:IV NS@100ML/HR IV METRONIDAZOLE TID IV AZTREONAM TID IV PROTONIX QD IMODIUM Q4HR/PRN IV ZOFRAN Q6/PRN IV MORPHINE Q4HR/PRN \: 3E MED SURG UNIT DCP: HOME WHEN STABLE PLAN: ADMIT TO INPATIENT
[2019-08-30] MEDS: Pantoprazole Inj IVP SCH (08:51)
[2019-08-30] MEDS: Aztreonam Inj 2 GM in D5W 110 ML IVPB SCH (08:52)
[2019-08-30 09:52] LABS: HEMATOCRIT 23.4 % (37.0-47.0); HEMOGLOBIN 8.2 G/DL (12.0-16.0); MEAN CORPUSCULAR VOLUME 84 FL (80-99); PLATELET COUNT 73 K/UL (150-450); RED BLOOD COUNT 2.78 M/UL (4.20-5.40); WHITE BLOOD COUNT 5.6 K/UL (4.8-10.8)
--- NOTE | 2019-08-30 10:20 | General Progress Note ---
Assessment/Plan Assessment/Plan: S: I am ok O: seems comfortable, pain is well controlled. PHYSICAL EXAMINATION: HEAD AND NECK: Atraumatic and normocephalic. CHEST: Clear to auscultation.HEART: S1, S2. Regular rate and rhythm. ABDOMEN: Soft. No organomegaly.MUSCULOSKELETAL: No gross lateralized motor deficit. NEUROLOGY: Awake, alert, and oriented x3. LABORATORY DATA: Labs dated August 28 reviewed Urine drug screen is unremarkable and negative. IMAGING: No official report available to review. Results pending. ASSESSMENT: 1. Sepsis. 2. UTI- Gram negative 3. Acute gastroenteritis. 4. Pancytopenia. 5. History of cervical cancer, staging unknown. 6. Abnormal D-dimer, likely cancer related, no evidence of active acute VTE event. 7. COPD history. 8. GI and DVT prophylaxis. 9. Acute anemia PLAN OF CARE: D'/w GI. Stool OB orderd. Continue with current IV antibiotic and hydration. Subjective Allergies: Coded Allergies: PENICILLINS (Verified Allergy, Unknown, 08/23/19) VANCOMYCIN (Verified Adverse Reaction, Intermediate, 08/27/19) headache and vomitting Objective Last 24 Hour Vital Signs Date Time Temp Pulse Resp B/P (MAP) Pulse Ox O2 Delivery O2 Flow Rate FiO2 08/30/19 09:00 Room Air 08/30/19 08:33 98.3 75 18 111/65 (80) 100 08/30/19 04:00 98.3 79 18 118/69 (85) 100 08/30/19 00:00 97.9 77 20 117/61 (79) 100 08/29/19 21:00 Room Air 08/29/19 20:00 97.8 70 20 119/76 (90) 100 08/29/19 17:01 98.1 08/29/19 16:00 98.1 72 20 109/66 (80) 100 08/29/19 12:00 97.5 65 18 114/65 (81) 99 08/29/19 11:55 98.1 Intake and Output 08/29/19 08/30/19 19:00 07:00 Intake Total 840 ml 2480 ml Balance 840 ml 2480 ml IV Total 840 ml 2120 ml Other 360 ml # Voids 2 4 # Bowel Movements 3 Laboratory Tests 08/30/19 09:25: White Blood Count 5.6, Red Blood Count 2.78L, Hemoglobin 8.2L, Hematocrit 23.4L , Mean Corpuscular Volume 84, Mean Corpuscular Hemoglobin 29.4, Mean Corpuscular Hemoglobin Concent 35.0, Red Cell Distribution Width 18.0H, Platelet Count 73L, Mean Platelet Volume 5.8L, Neutrophils (%) (Auto) , Lymphocytes (%) (Auto) , Monocytes (%) (Auto) , Eosinophils (%) (Auto) , Basophils (%) (Auto) , Neutrophils % (Manual) [Pending], Lymphocytes % (Manual) [Pending], Platelet Estimate [Pending], Platelet Morphology [Pending], Hepatitis A IgM Antibody [Pending], Hepatitis B Surface Antigen [Pending], Hepatitis B Core IgM Antibody [Pending], Hepatitis C Antibody [Pending], HIV (1& 2) Antibody Rapid [Pending] Height (Feet): 5 Height (Inches): 8.00 Weight (Pounds): 110 Ngoc Teresa MD Aug 30, 2019 10:20
--- NOTE | 2019-08-30 11:24 | GI Progress Note ---
Assessment/Plan Problems: (1) Diarrhea ICD Codes: R19.7 - Diarrhea, unspecified SNOMED: 38233528 (2) Electrolyte imbalance ICD Codes: E87.8 - Other disorders of electrolyte and fluid balance, not elsewhere classified SNOMED: 169678177 (3) Intractable vomiting ICD Codes: R11.10 - Vomiting, unspecified SNOMED: 904640639 (4) Dehydration ICD Codes: E86.0 - Dehydration SNOMED: 12523859 Status: unchanged Status Narrative Discussed with Dr. Kennedy Assessment/Plan cervical Ca radiation enteritis diarrhea, cdiff negative wt loss pancytopenia rectal bleed>>> ? hemorrhoids refused colonoscopy Imodium as needed, consider Lomotil for persistent diarrhea ivf pain control stool studies anusol HC prn zofran q4 ID in put appreciated cardiology The patient was seen and examined at bedside and all new and available data was reviewed in the patients chart. I agree with the above findings, impression and plan. (Patient seen earlier today. Signature stamp does not reflect patient encounter time.). - Vinny Kennedy MD Subjective Subjective Continues to have persistent diarrhea Continues to have nausea No history of colonoscopy Objective Last 24 Hour Vital Signs Date Time Temp Pulse Resp B/P (MAP) Pulse Ox O2 Delivery O2 Flow Rate FiO2 08/30/19 09:00 Room Air 08/30/19 08:33 98.3 75 18 111/65 (80) 100 08/30/19 04:00 98.3 79 18 118/69 (85) 100 08/30/19 00:00 97.9 77 20 117/61 (79) 100 08/29/19 21:00 Room Air 08/29/19 20:00 97.8 70 20 119/76 (90) 100 08/29/19 17:01 98.1 08/29/19 16:00 98.1 72 20 109/66 (80) 100 08/29/19 12:00 97.5 65 18 114/65 (81) 99 08/29/19 11:55 98.1 Intake and Output 08/29/19 08/30/19 19:00 07:00 Intake Total 840 ml 2480 ml Balance 840 ml 2480 ml IV Total 840 ml 2120 ml Other 360 ml # Voids 2 4 # Bowel Movements 3 Laboratory Tests Test 3/9/20 09:25 White Blood Count 5.6 K/UL (4.8-10.8) Red Blood Count 2.78 M/UL (4.20-5.40) L Hemoglobin 8.2 G/DL (12.0-16.0) L Hematocrit 23.4 % (37.0-47.0) L Mean Corpuscular Volume 84 FL (80-99) Mean Corpuscular Hemoglobin 29.4 PG (27.0-31.0) Mean Corpuscular Hemoglobin Concent 35.0 G/DL (32.0-36.0) Red Cell Distribution Width 18.0 % (11.6-14.8) H Platelet Count 73 K/UL (150-450) L Mean Platelet Volume 5.8 FL (6.5-10.1) L Neutrophils (%) (Auto) % (45.0-75.0) Lymphocytes (%) (Auto) % (20.0-45.0) Monocytes (%) (Auto) % (1.0-10.0) Eosinophils (%) (Auto) % (0.0-3.0) Basophils (%) (Auto) % (0.0-2.0) Differential Total Cells Counted 100 Neutrophils % (Manual) 77 % (45-75) H Lymphocytes % (Manual) 9 % (20-45) L Monocytes % (Manual) 10 % (1-10) Eosinophils % (Manual) 2 % (0-3) Basophils % (Manual) 0 % (0-2) Band Neutrophils 2 % (0-8) Platelet Estimate Decreased L Platelet Morphology Normal Anisocytosis 1+ Hepatitis A IgM Antibody Pending Hepatitis B Surface Antigen Pending Hepatitis B Core IgM Antibody Pending Hepatitis C Antibody Pending HIV (1&2) Antibody Rapid Negative (NEGATIVE) Height (Feet): 5 Height (Inches): 8.00 Weight (Pounds): 110 General Appearance: WD/WN, no apparent distress, alert, thin Cardiovascular: normal rate Respiratory/Chest: normal breath sounds, no respiratory distress Abdominal Exam: normal bowel sounds, non tender, soft Extremities: normal range of motion, non-tender Essie Tinajero NP Aug 30, 2019 11:24
--- NOTE | 2019-08-30 11:30 | NUR ---
NURSE NOTES: PT AWAKE ALERT, NO DISTRESS. NO C/O PAIN. CALL LIGHT WITHIN REACH. BED IN LOWEST POSITION, LOCKED. WILL MONITOR.
--- NOTE | 2019-08-30 11:48 | NUR ---
NURSE NOTES: PAGED DR TORRES RE PT C/O N/V DURING [facility] ADMINISTRATION AND PT WOULD LIKE TO KNOW IF IT CAN BE DC/D
--- NOTE | 2019-08-30 13:15 | Infectious Diseases Prog Note ---
Assessment/Plan Problems: (1) Pancytopenia, acquired Assessment & Plan: suspect due to bone marrow suppression , IMPROVED , blood culture x 2 is negative , S/P filgrastim (2) UTI (urinary tract infection) Assessment & Plan: culture grew small colony most likely contaminants , stop aztreonam (3) Vaginal discharge Assessment & Plan: culture grew MSSA will treat with doxycycline , stop metronidazole and aztreonam, await screening for chlamydia and gonorrhea (4) Dehydration Assessment & Plan: improved , continue IVF for hydration (5) Cervical cancer Assessment & Plan: S/P External radiation (6) Vaginal yeast infection Assessment & Plan: will give one dose of fluconazol 150 x 1 Subjective Constitutional: Reports: fatigue HEENT: Reports: no symptoms Respiratory: Reports: no symptoms Breasts: Reports: no symptoms Cardiovascular: Reports: no symptoms Gastrointestinal/Abdominal: Reports: no symptoms, diarrhea Genitourinary: Reports: vaginal bleed/discharge Neurologic: Reports: weakness Psychiatric: Reports: anxiety Skin: Reports: no symptoms Endocrine: Reports: no symptoms Hematologic: Reports: no symptoms Musculoskeletal: Reports: no symptoms Allergies: Coded Allergies: PENICILLINS (Verified Allergy, Unknown, 08/23/19) VANCOMYCIN (Verified Adverse Reaction, Intermediate, 08/27/19) headache and vomitting Objective Vital Signs Last 24 Hour Vital Signs Date Time Temp Pulse Resp B/P (MAP) Pulse Ox O2 Delivery O2 Flow Rate FiO2 08/30/19 11:44 98.3 08/30/19 09:00 Room Air 08/30/19 08:33 98.3 75 18 111/65 (80) 100 08/30/19 04:00 98.3 79 18 118/69 (85) 100 08/30/19 00:00 97.9 77 20 117/61 (79) 100 08/29/19 21:00 Room Air 08/29/19 20:00 97.8 70 20 119/76 (90) 100 08/29/19 17:01 98.1 08/29/19 16:00 98.1 72 20 109/66 (80) 100 Height (Feet): 5 Height (Inches): 8.00 Weight (Pounds): 110 General Appearance: no acute distress, cachetic HEENT: normocephalic, atraumatic, anicteric, mucous membranes moist, PERRL Respiratory/Chest: chest wall non-tender, lungs clear, normal breath sounds, no respiratory distress, no accessory muscle use Cardiovascular: normal peripheral pulses, normal rate, regular rhythm, no gallop/murmur, no JVD Abdomen: normal bowel sounds, soft, non tender, no organomegaly, non distended , no mass, no scars Genitourinary: normal external genitalia Extremities: no cyanosis, no clubbing Skin: no rash, no lesions, no ulcers Neurologic/Psychiatric: alert, responsive Lymphatic: no neck adenopathy, no groin adenopathy Musculoskeletal: normal muscle bulk, no effusion Microbiology Date/Time Source Procedure Growth Status 08/28/19 18:50 Blood Blood Culture - Preliminary NO GROWTH AFTER 24 HOURS Resulted 08/28/19 18:25 Blood Blood Culture - Preliminary NO GROWTH AFTER 24 HOURS Resulted 08/28/19 05:20 Vaginal Genital Culture - Preliminary Staphylococcus Aureus Amanda Albicans Resulted 08/28/19 12:05 Stool Clostridium difficile Toxin Assay - Final Complete 08/27/19 14:38 Urine,Clean Catch Urine Culture - Final Escherichia Coli Complete Laboratory Tests Test 08/30/19 09:25 White Blood Count 5.6 K/UL (4.8-10.8) Red Blood Count 2.78 M/UL (4.20-5.40) L Hemoglobin 8.2 G/DL (12.0-16.0) L Hematocrit 23.4 % (37.0-47.0) L Mean Corpuscular Volume 84 FL (80-99) Mean Corpuscular Hemoglobin 29.4 PG (27.0-31.0) Mean Corpuscular Hemoglobin Concent 35.0 G/DL (32.0-36.0) Red Cell Distribution Width 18.0 % (11.6-14.8) H Platelet Count 73 K/UL (150-450) L Mean Platelet Volume 5.8 FL (6.5-10.1) L Neutrophils (%) (Auto) % (45.0-75.0) Lymphocytes (%) (Auto) % (20.0-45.0) Monocytes (%) (Auto) % (1.0-10.0) Eosinophils (%) (Auto) % (0.0-3.0) Basophils (%) (Auto) % (0.0-2.0) Differential Total Cells Counted 100 Neutrophils % (Manual) 77 % (45-75) H Lymphocytes % (Manual) 9 % (20-45) L Monocytes % (Manual) 10 % (1-10) Eosinophils % (Manual) 2 % (0-3) Basophils % (Manual) 0 % (0-2) Band Neutrophils 2 % (0-8) Platelet Estimate Decreased L Platelet Morphology Normal Anisocytosis 1+ Hepatitis A IgM Antibody Pending Hepatitis B Surface Antigen Pending Hepatitis B Core IgM Antibody Pending Hepatitis C Antibody Pending HIV (1&2) Antibody Rapid Negative (NEGATIVE) Current Medications Medications (Trade) Dose Ordered Sig/Kristina Route PRN Reason Start Time Stop Time Status Last Admin Dose Admin Acetaminophen/ Butalbital/ Caffeine (Fioricet) 1 tab Q6H PRN ORAL For Pain 08/27/19 23:45 09/26/19 23:44 Aztreonam 2 gm/ Dextrose 110 ml @ 220 mls/hr Q8HR@0000,0800,1600 IVPB 08/28/19 00:00 09/04/19 00:00 08/30/19 08:52 Dextrose/Sodium Chloride 1,000 ml @ 100 mls/hr Q10H IV 08/27/19 18:00 09/26/19 17:59 08/30/19 03:26 Diphenhydramine HCl (Benadryl) 50 mg Q6H PRN IVP Itching 08/27/19 17:45 09/26/19 17:44 08/27/19 18:53 Hydrocortisone (Anusol HC) 1 applic TWICE A DAY RECTAL 08/29/19 18:00 09/28/19 17:59 08/29/19 17:33 Ketorolac Tromethamine (Toradol 30mg) 30 mg BID PRN IV For Pain 08/27/19 23:45 09/01/19 23:44 08/29/19 16:31 Loperamide HCl (Imodium) 2 mg Q4H PRN ORAL Diarrhea 08/30/19 11:30 09/29/19 11:29 08/30/19 11:34 Lorazepam (Ativan 2mg/ml 1ml) 0.5 mg QHS PRN IV For Anxiety 08/28/19 20:15 09/04/19 20:06 08/29/19 22:05 Lorazepam (Ativan) 0.5 mg QHS PRN ORAL For Anxiety 08/27/19 21:15 09/03/19 21:14 08/27/19 21:37 Metoclopramide HCl (Reglan) 10 mg Q8H PRN IVP Nausea & Vomiting 08/29/19 01:00 09/28/19 00:59 Morphine Sulfate (Morphine Sulfate) 2 mg Q4H PRN IVP For Pain 08/27/19 23:45 09/03/19 23:44 08/30/19 11:14 Ondansetron HCl (Zofran) 4 mg Q4H PRN IVP Nausea & Vomiting 08/30/19 11:15 09/29/19 11:14 08/30/19 11:15 Pantoprazole (Protonix) 40 mg DAILY IVP 08/28/19 09:00 09/27/19 08:59 08/29/19 08:39 Shira Avitia M.D. Aug 30, 2019 13:15
--- NOTE | 2019-08-30 13:32 | Cardiac Electrophysiology PN ---
Assessment/Plan Assessment/Plan 1. Hypotension. Blood pressures improved. The patient does not have any lightheadedness or dizziness. If the hypotension continues, I will start the patient on midodrine. Echocardiogram EF 55%. 2. Shortness of breath.Troponin negative. 3. Pancytopenia with low white count of 1.7, hemoglobin of 10, and platelet count of 121. Further evaluation by Hematology. 4. Cervical cancer, status post radiation therapy. 5. Intractable nausea and vomiting, followed by GI. Subjective Subjective Alert in NAD. No CP or SOB. Was nauseous and vomited. Objective Last 24 Hour Vital Signs Date Time Temp Pulse Resp B/P (MAP) Pulse Ox O2 Delivery O2 Flow Rate FiO2 08/30/19 11:44 98.3 08/30/19 09:00 Room Air 08/30/19 08:33 98.3 75 18 111/65 (80) 100 08/30/19 04:00 98.3 79 18 118/69 (85) 100 08/30/19 00:00 97.9 77 20 117/61 (79) 100 08/29/19 21:00 Room Air 08/29/19 20:00 97.8 70 20 119/76 (90) 100 08/29/19 17:01 98.1 08/29/19 16:00 98.1 72 20 109/66 (80) 100 Intake and Output 08/29/19 08/30/19 19:00 07:00 Intake Total 840 ml 2480 ml Balance 840 ml 2480 ml IV Total 840 ml 2120 ml Other 360 ml # Voids 2 4 # Bowel Movements 3 Laboratory Tests Test 08/30/19 09:25 White Blood Count 5.6 K/UL (4.8-10.8) Red Blood Count 2.78 M/UL (4.20-5.40) L Hemoglobin 8.2 G/DL (12.0-16.0) L Hematocrit 23.4 % (37.0-47.0) L Mean Corpuscular Volume 84 FL (80-99) Mean Corpuscular Hemoglobin 29.4 PG (27.0-31.0) Mean Corpuscular Hemoglobin Concent 35.0 G/DL (32.0-36.0) Red Cell Distribution Width 18.0 % (11.6-14.8) H Platelet Count 73 K/UL (150-450) L Mean Platelet Volume 5.8 FL (6.5-10.1) L Neutrophils (%) (Auto) % (45.0-75.0) Lymphocytes (%) (Auto) % (20.0-45.0) Monocytes (%) (Auto) % (1.0-10.0) Eosinophils (%) (Auto) % (0.0-3.0) Basophils (%) (Auto) % (0.0-2.0) Differential Total Cells Counted 100 Neutrophils % (Manual) 77 % (45-75) H Lymphocytes % (Manual) 9 % (20-45) L Monocytes % (Manual) 10 % (1-10) Eosinophils % (Manual) 2 % (0-3) Basophils % (Manual) 0 % (0-2) Band Neutrophils 2 % (0-8) Platelet Estimate Decreased L Platelet Morphology Normal Anisocytosis 1+ Hepatitis A IgM Antibody Pending Hepatitis B Surface Antigen Pending Hepatitis B Core IgM Antibody Pending Hepatitis C Antibody Pending HIV (1&2) Antibody Rapid Negative (NEGATIVE) Microbiology Date/Time Source Procedure Growth Status 08/28/19 18:50 Blood Blood Culture - Preliminary NO GROWTH AFTER 24 HOURS Resulted 08/28/19 18:25 Blood Blood Culture - Preliminary NO GROWTH AFTER 24 HOURS Resulted 08/28/19 05:20 Vaginal Genital Culture - Preliminary Staphylococcus Aureus Amanda Albicans Resulted 08/28/19 12:05 Stool Clostridium difficile Toxin Assay - Final Complete 08/27/19 14:38 Urine,Clean Catch Urine Culture - Final Escherichia Coli Complete Objective HEAD AND NECK: Showed no JVD. LUNGS: Clear. CARDIOVASCULAR: Regular S1 and S2 with no gallop. ABDOMEN: Soft. EXTREMITIES: No pitting edema. Charles Mckeon MD Aug 30, 2019 13:32
[2019-08-30] MEDS ORDERED: Fluconazole 150mg tab ORAL ONE (14:00)
[2019-08-30] MEDS ORDERED: D5 1/2NS 1000ml IV ONE (15:17)
[2019-08-30] MEDS ORDERED: Metoclopramide 10mg/2ml Inj IVP PRN (16:15)
[2019-08-30 20:00] VITALS: BP 114/68
--- NOTE | 2019-08-30 20:00 | NUR ---
nurse's notes: received patient awake, alert and oriented; admits to 8/10 generalized pain and nausea but no vomiting; per patient will try to eat some soup tonight; plan of care discussed with patient; verbalized understanding; will continue to monitor.
[2019-08-30] MEDS: Doxycycline Monohydrate 100mg ORAL SCH (20:03)
[2019-08-30] MEDS: LORazepam Inj 2mg/ml 1ml IV PRN (21:58)
[2019-08-31] VITALS: BP 116/67
[2019-08-31] MEDS: Morphine Sulfate 2mg/ml Inj(IV/IM USE ONLY) IVP PRN (06:07)
--- NOTE | 2019-08-31 06:30 | NUR ---
nurse's notes: no incidents of falls, injuries or trauma reported as of this time; pain and nausea managed well with IV medications; no vomiting reported; no diarrhea this shift; voiding well; VSS; will continue to monitor.
--- NOTE | 2019-08-31 06:38 | Hematology/Onc Progress Note ---
Assessment/Plan Assessment/Plan Assessment and recs # Pancytopenia -- multiple etiologies could be related to underlying liver disease, medication-induced, infection versus viral syndrome versus underlying bone marrow cause --> IN THIS CASE DUE TO RADIATION recently received, has received a total of 29 sessions and protracted cytopenias for these patients are common --> peripheral smear has been ordered and does not show significant abnormalities --> Medications have been reviewed --> Continue to monitor for improvement, trend cbc --> Hep panel and HIV have been ordered --> US abd ordered to r/o cirrhosis and hepatosplenomegaly --> may consider --> reverse isolation if ANC is <2000 --> Give neupogen if ANC <1000 --> Transfuse if hgb <7, with 1 unit prbc --> 3/ neupogen 300mcg sq x 1 given --> plt 121-->85k-->73 --> hgb trend 8.2 # Cervical cancer stage III s/p radiation only --> needs to follow outpatient onco Dr. Maribeth Campbell at [facility] --> has appointment to f/u # Sepsis with uti gram neg --> smear has been reviewed --> abx received # UTI- Gram negative --> abx have been given # Acute gastroenteritis. --> per gi Abnormal D-dimer, likely cancer related, no evidence of active acute VTE event. # COPD history # Intractable vomiting --> zofran/reglan prn # Dehydration -> ivf given The timing of this note does not necessarily reflect the time of the patient was seen. Greatly appreciate consultation. Subjective Constitutional: Denies: no symptoms, chills, fever, malaise, weakness, other HEENT: Denies: no symptoms, eye pain, blurred vision, tearing, double vision, ear pain, ear discharge, nose pain, nose congestion, throat pain, throat swelling, mouth pain, mouth swelling, other Cardiovascular: Denies: no symptoms, chest pain, edema, irregular heart rate, lightheadedness, palpitations, syncope, other Respiratory: Denies: no symptoms, cough, shortness of breath, SOB with excertion, SOB at rest, sputum, wheezing, other Gastrointestinal/Abdominal: Denies: no symptoms, abdomen distended, abdominal pain, black stools, tarry stools, blood in stool, constipated, diarrhea, difficulty swallowing, nausea, poor appetite, poor fluid intake, rectal bleeding , vomiting, other Genitourinary: Denies: no symptoms, burning, discharge, frequency, flank pain, hematuria, incontinence, pain, urgency, other Endocrine: Denies: no symptoms, excessive sweating, flushing, intolerance to cold, intolerance to heat, increased hunger, increased thirst, increased urine, unexplained weight gain, unexplained weight loss, other Allergies: Coded Allergies: PENICILLINS (Verified Allergy, Unknown, 08/23/19) VANCOMYCIN (Verified Adverse Reaction, Intermediate, 08/27/19) headache and vomitting Subjective 08/29: no major events, labs have been reviewed, no bleeding, smear is noted 08/30: still with nausea, occasional vomiting, meds reviewed, remains pancytopenic Objective Objective Current Medications Medications (Trade) Dose Ordered Sig/Kristina Route PRN Reason Start Time Stop Time Status Last Admin Dose Admin Acetaminophen/ Butalbital/ Caffeine (Fioricet) 1 tab Q6H PRN ORAL For Pain 08/27/19 23:45 09/26/19 23:44 Dextrose/Sodium Chloride 1,000 ml @ 100 mls/hr Q10H IV 08/27/19 18:00 09/26/19 17:59 08/30/19 23:54 Diphenhydramine HCl (Benadryl) 50 mg Q6H PRN IVP Itching 08/27/19 17:45 09/26/19 17:44 08/27/19 18:53 Doxycycline Monohydrate (Doxycycline Monohydrate) 100 mg EVERY 12 HOURS ORAL 08/30/19 21:00 09/06/19 20:59 08/30/19 20:03 Hydrocortisone (Anusol HC) 1 applic TWICE A DAY RECTAL 08/29/19 18:00 09/28/19 17:59 08/29/19 17:33 Ketorolac Tromethamine (Toradol 30mg) 30 mg BID PRN IV For Pain 08/27/19 23:45 09/01/19 23:44 08/29/19 16:31 Loperamide HCl (Imodium) 2 mg Q4H PRN ORAL Diarrhea 08/30/19 11:30 09/29/19 11:29 08/30/19 11:34 Lorazepam (Ativan 2mg/ml 1ml) 0.5 mg QHS PRN IV For Anxiety 08/28/19 20:15 09/04/19 20:06 08/30/19 21:58 Lorazepam (Ativan) 0.5 mg QHS PRN ORAL For Anxiety 08/27/19 21:15 09/03/19 21:14 08/27/19 21:37 Metoclopramide HCl (Reglan) 10 mg Q8H PRN IVP Nausea & Vomiting 08/30/19 16:15 09/29/19 16:14 08/30/19 16:11 Morphine Sulfate (Morphine Sulfate) 2 mg Q4H PRN IVP For Pain 08/27/19 23:45 09/03/19 23:44 08/31/19 06:07 Ondansetron HCl (Zofran) 4 mg Q4H PRN IVP Nausea & Vomiting 08/30/19 11:15 09/29/19 11:14 08/31/19 06:06 Pantoprazole (Protonix) 40 mg DAILY IVP 08/28/19 09:00 09/27/19 08:59 08/29/19 08:39 Last 24 Hour Vital Signs Date Time Temp Pulse Resp B/P (MAP) Pulse Ox O2 Delivery O2 Flow Rate FiO2 08/31/19 00:00 98.1 72 16 116/67 (83) 99 08/30/19 21:00 Room Air 08/30/19 20:00 98.1 72 18 114/68 (83) 100 08/30/19 18:26 98.3 08/30/19 09:00 Room Air 08/30/19 08:33 98.3 75 18 111/65 (80) 100 08/30/19 04:00 98.3 79 18 118/69 (85) 100 08/30/19 00:00 97.9 77 20 117/61 (79) 100 08/29/19 21:00 Room Air 08/29/19 20:00 97.8 70 20 119/76 (90) 100 08/29/19 17:01 98.1 08/29/19 16:00 98.1 72 20 109/66 (80) 100 08/29/19 12:00 97.5 65 18 114/65 (81) 99 08/29/19 09:00 Room Air 08/29/19 08:00 98.1 62 18 102/62 (75) 99 Intake and Output 08/30/19 08/31/19 19:00 07:00 Intake Total 420 ml 1380 ml Balance 420 ml 1380 ml Intake Oral 480 ml IV Total 420 ml 900 ml # Voids 3 3 # Bowel Movements 1 Labs Test 08/29/19 04:55 08/30/19 09:25 White Blood Count 6.0 K/UL (4.8-10.8) 5.6 K/UL (4.8-10.8) Red Blood Count 2.92 M/UL (4.20-5.40) 2.78 M/UL (4.20-5.40) Hemoglobin 8.6 G/DL (12.0-16.0) 8.2 G/DL (12.0-16.0) Hematocrit 24.8 % (37.0-47.0) 23.4 % (37.0-47.0) Mean Corpuscular Volume 85 FL (80-99) 84 FL (80-99) Mean Corpuscular Hemoglobin 29.4 PG (27.0-31.0) 29.4 PG (27.0-31.0) Mean Corpuscular Hemoglobin Concent 34.6 G/DL (32.0-36.0) 35.0 G/DL (32.0-36.0) Red Cell Distribution Width 18.2 % (11.6-14.8) 18.0 % (11.6-14.8) Platelet Count 85 K/UL (150-450) 73 K/UL (150-450) Mean Platelet Volume 7.1 FL (6.5-10.1) 5.8 FL (6.5-10.1) Neutrophils (%) (Auto) % (45.0-75.0) % (45.0-75.0) Lymphocytes (%) (Auto) % (20.0-45.0) % (20.0-45.0) Monocytes (%) (Auto) % (1.0-10.0) % (1.0-10.0) Eosinophils (%) (Auto) % (0.0-3.0) % (0.0-3.0) Basophils (%) (Auto) % (0.0-2.0) % (0.0-2.0) Differential Total Cells Counted 100 100 Neutrophils % (Manual) 81 % (45-75) 77 % (45-75) Lymphocytes % (Manual) 8 % (20-45) 9 % (20-45) Monocytes % (Manual) 11 % (1-10) 10 % (1-10) Eosinophils % (Manual) 0 % (0-3) 2 % (0-3) Basophils % (Manual) 0 % (0-2) 0 % (0-2) Band Neutrophils 0 % (0-8) 2 % (0-8) Platelet Estimate Decreased Decreased Platelet Morphology Normal Normal Hypochromasia 1+ Anisocytosis 1+ 1+ Sodium Level 142 MMOL/L (136-145) Potassium Level 3.1 MMOL/L (3.5-5.1) Chloride Level 106 MMOL/L (98-107) Carbon Dioxide Level 30 MMOL/L (21-32) Anion Gap 7 mmol/L (5-15) Blood Urea Nitrogen 4 mg/dL (7-18) Creatinine 0.6 MG/DL (0.55-1.30) Estimat Glomerular Filtration Rate > 60 mL/min (>60) Glucose Level 92 MG/DL (74-106) Calcium Level 8.9 MG/DL (8.5-10.1) Total Bilirubin 0.3 MG/DL (0.2-1.0) Aspartate Amino Transf (AST/SGOT) 13 U/L (15-37) Alanine Aminotransferase (ALT/SGPT) 17 U/L (12-78) Alkaline Phosphatase 50 U/L (46-116) Total Protein 6.5 G/DL (6.4-8.2) Albumin 2.7 G/DL (3.4-5.0) Globulin 3.8 g/dL Albumin/Globulin Ratio 0.7 (1.0-2.7) Hepatitis A IgM Antibody Negative (Negative) Hepatitis B Surface Antigen Negative (Negative) Hepatitis B Core IgM Antibody Negative (Negative) Hepatitis C Antibody <0.1 s/co ratio HIV (1&2) Antibody Rapid Negative (NEGATIVE) Height (Feet): 5 Height (Inches): 8.00 Weight (Pounds): 110 Objective Physical Exam: Vitals: reviewed General: NAD HEENT: nc, at Neck: supple Chest: clear breath sounds bilaterally Cardiovascular: RRR, no s3, s4 Abdomen: soft, nontender, nd Extremities: no cce, normal range of motion Neuro: alert and oriented Jesus Dunlap MD Aug 31, 2019 06:38
[2019-08-31 07:57] VITALS: BP 109/63
--- NOTE | 2019-08-31 08:00 | NUR ---
NURSE NOTES:resting quietly,a/ox4,room air,iv site patent,still with poor appetite,no vomiting whole night, claims just nauseated,wants to go home this pm.plan of care discussed and with understanding.
[2019-08-31] MEDS: Doxycycline Monohydrate 100mg ORAL SCH (08:36)
[2019-08-31] MEDS: Pantoprazole Inj IVP SCH (08:37)
[2019-08-31 09:19] LABS: HEMATOCRIT 24.1 % (37.0-47.0); HEMOGLOBIN 8.4 G/DL (12.0-16.0); MEAN CORPUSCULAR VOLUME 84 FL (80-99); PLATELET COUNT 77 K/UL (150-450); RED BLOOD COUNT 2.89 M/UL (4.20-5.40); RED CELL DISTRIBUTION WIDTH 17.7 % (11.6-14.8)
[2019-08-31 09:43] LABS: ANION GAP 8 mmol/L (5-15); BLOOD UREA NITROGEN 2 mg/dL (7-18); CALCIUM 8.5 MG/DL (8.5-10.1); CARBON DIOXIDE 28 MMOL/L (21-32); CHLORIDE 106 MMOL/L (98-107); CREATININE 0.6 MG/DL (0.55-1.30); PHOSPHORUS 3.6 MG/DL (2.5-4.9); SODIUM 142 MMOL/L (136-145)
[2019-08-31 09:54] LABS: POTASSIUM 2.6 MMOL/L (3.5-5.1)
--- NOTE | 2019-08-31 10:15 | NUR ---
NURSE NOTES:MIRNA(PA) NOTIFIED RE:PT.REFUSED MG./KCL IV .EXPLAINED THE BENEFITS OF MEDS BUT PT. REFUSED PT.JUST WANTS TO GO HOME STATED"MY K IS ALWAYS LOW"MIRNA STATED TO CALL DR. CHANDLER FOR D/C ORDERS
--- NOTE | 2019-08-31 10:20 | NUR ---
NURSE NOTES:DR. CHANDLER NOTIFIED RE:PT WANTS TO GO HOME, STATED TO CALL FOR ANT.AND TO SEE PT. AT NOON.PT UPDATED.
--- NOTE | 2019-08-31 10:30 | NUR ---
NURSE NOTES:DR. TORRES NOTIFIED RE:PT.WANTS TO GO HOME NEEDS ANT.RX,CLEARANCE FOR D/C.ORDERS CARRIED OUT.PT.INFORMED.
--- NOTE | 2019-08-31 11:55 | Cardiac Electrophysiology PN ---
Assessment/Plan Assessment/Plan 1. Hypotension. Blood pressures improved. The patient does not have any lightheadedness or dizziness. Echocardiogram EF 55%. 2. Shortness of breath.Troponin negative. 3. Pancytopenia with low white count of 1.7, hemoglobin of 10, and platelet count of 121. Further evaluation by Hematology. 4. Cervical cancer, status post radiation therapy. 5. Intractable nausea and vomiting, followed by GI. Subjective Subjective Alert in NAD. No CP or SOB. Just took a shower. Objective Last 24 Hour Vital Signs Date Time Temp Pulse Resp B/P (MAP) Pulse Ox O2 Delivery O2 Flow Rate FiO2 08/31/19 08:00 Room Air 08/31/19 07:57 98.3 71 19 109/63 (78) 99 08/31/19 06:37 98.1 08/31/19 00:00 98.1 72 16 116/67 (83) 99 08/30/19 21:00 Room Air 08/30/19 20:00 98.1 72 18 114/68 (83) 100 Intake and Output 08/30/19 08/31/19 19:00 07:00 Intake Total 420 ml 1380 ml Balance 420 ml 1380 ml Intake Oral 480 ml IV Total 420 ml 900 ml # Voids 3 3 # Bowel Movements 1 Laboratory Tests Test 08/31/19 08:15 White Blood Count 4.0 K/UL (4.8-10.8) L Red Blood Count 2.89 M/UL (4.20-5.40) L Hemoglobin 8.4 G/DL (12.0-16.0) L Hematocrit 24.1 % (37.0-47.0) L Mean Corpuscular Volume 84 FL (80-99) Mean Corpuscular Hemoglobin 29.0 PG (27.0-31.0) Mean Corpuscular Hemoglobin Concent 34.7 G/DL (32.0-36.0) Red Cell Distribution Width 17.7 % (11.6-14.8) H Platelet Count 77 K/UL (150-450) L Mean Platelet Volume 5.8 FL (6.5-10.1) L Neutrophils (%) (Auto) % (45.0-75.0) Lymphocytes (%) (Auto) % (20.0-45.0) Monocytes (%) (Auto) % (1.0-10.0) Eosinophils (%) (Auto) % (0.0-3.0) Basophils (%) (Auto) % (0.0-2.0) Differential Total Cells Counted 100 Neutrophils % (Manual) 72 % (45-75) Lymphocytes % (Manual) 17 % (20-45) L Monocytes % (Manual) 9 % (1-10) Eosinophils % (Manual) 0 % (0-3) Basophils % (Manual) 2 % (0-2) Band Neutrophils 0 % (0-8) Platelet Estimate Decreased L Platelet Morphology Normal Hypochromasia 2+ Anisocytosis 1+ Spherocytes 1+ Sodium Level 142 MMOL/L (136-145) Potassium Level 2.6 MMOL/L (3.5-5.1) *L Chloride Level 106 MMOL/L (98-107) Carbon Dioxide Level 28 MMOL/L (21-32) Anion Gap 8 mmol/L (5-15) Blood Urea Nitrogen 2 mg/dL (7-18) L Creatinine 0.6 MG/DL (0.55-1.30) Estimat Glomerular Filtration Rate > 60 mL/min (>60) Glucose Level 104 MG/DL (74-106) Calcium Level 8.5 MG/DL (8.5-10.1) Phosphorus Level 3.6 MG/DL (2.5-4.9) Magnesium Level 1.6 MG/DL (1.8-2.4) L Microbiology Date/Time Source Procedure Growth Status 08/28/19 18:50 Blood Blood Culture - Preliminary NO GROWTH AFTER 48 HOURS Resulted 08/28/19 18:25 Blood Blood Culture - Preliminary NO GROWTH AFTER 48 HOURS Resulted 08/28/19 12:05 Stool Clostridium difficile Toxin Assay - Final Complete 08/28/19 12:05 Rectum Stool Culture - Final NO SALMONELLA,SHIGELLA,OR CAMPYLOBACT... Complete Objective HEAD AND NECK: Showed no JVD. LUNGS: Clear. CARDIOVASCULAR: Regular S1 and S2 with no gallop. ABDOMEN: Soft. EXTREMITIES: No pitting edema. Charles Mckeon MD Aug 31, 2019 11:55
[2019-08-31 12:00] VITALS: BP 112/65
[2019-08-31] MEDS: D5NS 1,000 ML IV SCH (12:00)
--- NOTE | 2019-08-31 13:00 | NUR ---
NURSE NOTES:PT. HAD SHOWER.
--- NOTE | 2019-08-31 13:04 | GI Progress Note ---
Assessment/Plan Problems: (1) Diarrhea ICD Codes: R19.7 - Diarrhea, unspecified SNOMED: 16428902 (2) Electrolyte imbalance ICD Codes: E87.8 - Other disorders of electrolyte and fluid balance, not elsewhere classified SNOMED: 195205232 (3) Intractable vomiting ICD Codes: R11.10 - Vomiting, unspecified SNOMED: 437787093 (4) Dehydration ICD Codes: E86.0 - Dehydration SNOMED: 27004778 Status: stable Status Narrative Discussed with Dr. Kennedy. Assessment/Plan cervical Ca radiation enteritis diarrhea, cdiff negative wt loss pancytopenia rectal bleed>>> ? hemorrhoids refused colonoscopy Imodium as needed, consider Lomotil for persistent diarrhea ivf pain control stool studies anusol HC prn zofran q4 ID in put appreciated cardiology The patient was seen and examined at bedside and all new and available data was reviewed in the patients chart. I agree with the above findings, impression and plan. (Patient seen earlier today. Signature stamp does not reflect patient encounter time.). - Vinny Kennedy MD Subjective Subjective Continues to have persistent diarrhea Continues to have nausea No history of colonoscopy Objective Last 24 Hour Vital Signs Date Time Temp Pulse Resp B/P (MAP) Pulse Ox O2 Delivery O2 Flow Rate FiO2 08/31/19 12:00 98.1 65 20 112/65 (81) 99 08/31/19 08:00 Room Air 08/31/19 07:57 98.3 71 19 109/63 (78) 99 08/31/19 06:37 98.1 08/31/19 00:00 98.1 72 16 116/67 (83) 99 08/30/19 21:00 Room Air 08/30/19 20:00 98.1 72 18 114/68 (83) 100 Intake and Output 08/30/19 08/31/19 19:00 07:00 Intake Total 420 ml 1380 ml Balance 420 ml 1380 ml Intake Oral 480 ml IV Total 420 ml 900 ml # Voids 3 3 # Bowel Movements 1 Laboratory Tests Test 08/31/19 08:15 White Blood Count 4.0 K/UL (4.8-10.8) L Red Blood Count 2.89 M/UL (4.20-5.40) L Hemoglobin 8.4 G/DL (12.0-16.0) L Hematocrit 24.1 % (37.0-47.0) L Mean Corpuscular Volume 84 FL (80-99) Mean Corpuscular Hemoglobin 29.0 PG (27.0-31.0) Mean Corpuscular Hemoglobin Concent 34.7 G/DL (32.0-36.0) Red Cell Distribution Width 17.7 % (11.6-14.8) H Platelet Count 77 K/UL (150-450) L Mean Platelet Volume 5.8 FL (6.5-10.1) L Neutrophils (%) (Auto) % (45.0-75.0) Lymphocytes (%) (Auto) % (20.0-45.0) Monocytes (%) (Auto) % (1.0-10.0) Eosinophils (%) (Auto) % (0.0-3.0) Basophils (%) (Auto) % (0.0-2.0) Differential Total Cells Counted 100 Neutrophils % (Manual) 72 % (45-75) Lymphocytes % (Manual) 17 % (20-45) L Monocytes % (Manual) 9 % (1-10) Eosinophils % (Manual) 0 % (0-3) Basophils % (Manual) 2 % (0-2) Band Neutrophils 0 % (0-8) Platelet Estimate Decreased L Platelet Morphology Normal Hypochromasia 2+ Anisocytosis 1+ Spherocytes 1+ Sodium Level 142 MMOL/L (136-145) Potassium Level 2.6 MMOL/L (3.5-5.1) *L Chloride Level 106 MMOL/L (98-107) Carbon Dioxide Level 28 MMOL/L (21-32) Anion Gap 8 mmol/L (5-15) Blood Urea Nitrogen 2 mg/dL (7-18) L Creatinine 0.6 MG/DL (0.55-1.30) Estimat Glomerular Filtration Rate > 60 mL/min (>60) Glucose Level 104 MG/DL (74-106) Calcium Level 8.5 MG/DL (8.5-10.1) Phosphorus Level 3.6 MG/DL (2.5-4.9) Magnesium Level 1.6 MG/DL (1.8-2.4) L Height (Feet): 5 Height (Inches): 8.00 Weight (Pounds): 110 General Appearance: WD/WN, no apparent distress, alert Cardiovascular: normal rate Respiratory/Chest: normal breath sounds, no respiratory distress Abdominal Exam: normal bowel sounds, non tender, soft Extremities: normal range of motion, non-tender Essie Tinajero NP Aug 31, 2019 13:03
--- NOTE | 2019-08-31 13:30 | NUR ---
NURSE NOTES:dr. sommer acharya re:pt.is for discharge.
--- NOTE | 2019-08-31 13:32 | CDS Physician Query ---
Clarification is required for compliance, coding accuracy, and to reflect severity of illness for this patient Dear Dr. Ngoc Teresa Date: 08/31/2019 Price Checker/CDS Name: Shruthi Celeste Clinical Documentation states: HNP: 38-year-old female with a history of cachexia and malnourishment, who presented with the nausea and vomitus for a couple of days... Sepsis, UTI, Acute gastroenteritis, Pancytopenia, history of cervical cancer RD note: Increased kcal and pro needs r/t cancer and wt loss as evidenced by pt w/ cervical cancer w/ 25# wt loss, currently underweight per guidelines, s/p radiation, adm w/ N/V. BMI: 16.7 Please select the most appropriate option: [x] Protein/Calorie Malnutrition [] Mild [x] Moderate [] Severe [] Hypoalbuminemia [] Underweight [] Intestinal malabsorption [] Other [] Unable to determine [] Not Applicable Present on Admission: x[] Yes [] No [] Clinically Undetermined Ngoc Teresa Physician signature Date Please also document in your Progress Notes and/or Discharge Summary and indicate if the condition was present on admission. MTDD
--- NOTE | 2019-08-31 13:45 | NUR ---
NURSE NOTES:FAMILY HERE TO LEAD APPLIER PT.STATED"I CANT WAIT FOR THE ANYMORE"CHARGE NURSE AWARE.D/C INSTRUCTIONS INCLUDING BELONGINGS GIVEN AND ACKNOWLEDGE.KIERA Edward/CURTIS.LEAD APPLIER BY COUSIN BY PRIVATE VEHICLE.PT.STABLE ON PICKUP. Addendum: 08/31/19 at 1448 by MENDY LOPEZ RN NO EPISODE OF VOMITING/DIARHEA
--- NOTE | 2019-08-31 14:23 | Infectious Diseases Prog Note ---
Assessment/Plan Problems: (1) Pancytopenia, acquired Assessment & Plan: suspect due to bone marrow suppression , IMPROVED , blood culture x 2 is negative , S/P filgrastim (2) UTI (urinary tract infection) Assessment & Plan: culture grew small colony most likely contaminants , stop aztreonam (3) Vaginal discharge Assessment & Plan: culture grew MSSA , continue doxycycline for 7 days total , screening for chlamydia and gonorrhea is pending (4) Cervical cancer Assessment & Plan: S/P External radiation (5) Vaginal yeast infection Assessment & Plan: S/P one dose of fluconazol 150 x 1 Subjective Constitutional: Reports: fatigue, anorexia HEENT: Reports: no symptoms Respiratory: Reports: no symptoms Breasts: Reports: no symptoms Cardiovascular: Reports: no symptoms Gastrointestinal/Abdominal: Reports: nausea, diarrhea, bloating Genitourinary: Reports: no symptoms Neurologic: Reports: weakness Psychiatric: Reports: no symptoms Skin: Reports: no symptoms Endocrine: Reports: no symptoms Hematologic: Reports: no symptoms Musculoskeletal: Reports: no symptoms Allergies: Coded Allergies: PENICILLINS (Verified Allergy, Unknown, 08/23/19) VANCOMYCIN (Verified Adverse Reaction, Intermediate, 08/27/19) headache and vomitting Objective Vital Signs Last 24 Hour Vital Signs Date Time Temp Pulse Resp B/P (MAP) Pulse Ox O2 Delivery O2 Flow Rate FiO2 08/31/19 12:00 98.1 65 20 112/65 (81) 99 08/31/19 08:00 Room Air 08/31/19 07:57 98.3 71 19 109/63 (78) 99 08/31/19 06:37 98.1 08/31/19 00:00 98.1 72 16 116/67 (83) 99 08/30/19 21:00 Room Air 08/30/19 20:00 98.1 72 18 114/68 (83) 100 Height (Feet): 5 Height (Inches): 8.00 Weight (Pounds): 110 General Appearance: WD/WN, no acute distress HEENT: normocephalic, atraumatic, anicteric, mucous membranes moist, PERRL Respiratory/Chest: chest wall non-tender, lungs clear, normal breath sounds, no respiratory distress, no accessory muscle use Cardiovascular: normal peripheral pulses, normal rate, regular rhythm, no gallop/murmur, no JVD Abdomen: normal bowel sounds, soft, non tender, no organomegaly, non distended , no mass, no scars Extremities: no cyanosis, no clubbing Skin: no rash, no lesions, no ulcers Neurologic/Psychiatric: alert, responsive Lymphatic: no neck adenopathy, no groin adenopathy Musculoskeletal: no effusion Microbiology Date/Time Source Procedure Growth Status 08/28/19 18:50 Blood Blood Culture - Preliminary NO GROWTH AFTER 48 HOURS Resulted 08/28/19 18:25 Blood Blood Culture - Preliminary NO GROWTH AFTER 48 HOURS Resulted Laboratory Tests Test 08/31/19 08:15 White Blood Count 4.0 K/UL (4.8-10.8) L Red Blood Count 2.89 M/UL (4.20-5.40) L Hemoglobin 8.4 G/DL (12.0-16.0) L Hematocrit 24.1 % (37.0-47.0) L Mean Corpuscular Volume 84 FL (80-99) Mean Corpuscular Hemoglobin 29.0 PG (27.0-31.0) Mean Corpuscular Hemoglobin Concent 34.7 G/DL (32.0-36.0) Red Cell Distribution Width 17.7 % (11.6-14.8) H Platelet Count 77 K/UL (150-450) L Mean Platelet Volume 5.8 FL (6.5-10.1) L Neutrophils (%) (Auto) % (45.0-75.0) Lymphocytes (%) (Auto) % (20.0-45.0) Monocytes (%) (Auto) % (1.0-10.0) Eosinophils (%) (Auto) % (0.0-3.0) Basophils (%) (Auto) % (0.0-2.0) Differential Total Cells Counted 100 Neutrophils % (Manual) 72 % (45-75) Lymphocytes % (Manual) 17 % (20-45) L Monocytes % (Manual) 9 % (1-10) Eosinophils % (Manual) 0 % (0-3) Basophils % (Manual) 2 % (0-2) Band Neutrophils 0 % (0-8) Platelet Estimate Decreased L Platelet Morphology Normal Hypochromasia 2+ Anisocytosis 1+ Spherocytes 1+ Sodium Level 142 MMOL/L (136-145) Potassium Level 2.6 MMOL/L (3.5-5.1) *L Chloride Level 106 MMOL/L (98-107) Carbon Dioxide Level 28 MMOL/L (21-32) Anion Gap 8 mmol/L (5-15) Blood Urea Nitrogen 2 mg/dL (7-18) L Creatinine 0.6 MG/DL (0.55-1.30) Estimat Glomerular Filtration Rate > 60 mL/min (>60) Glucose Level 104 MG/DL (74-106) Calcium Level 8.5 MG/DL (8.5-10.1) Phosphorus Level 3.6 MG/DL (2.5-4.9) Magnesium Level 1.6 MG/DL (1.8-2.4) L Current Medications Medications (Trade) Dose Ordered Sig/Kristina Route PRN Reason Start Time Stop Time Status Last Admin Dose Admin Acetaminophen/ Butalbital/ Caffeine (Fioricet) 1 tab Q6H PRN ORAL For Pain 08/27/19 23:45 09/26/19 23:44 Dextrose/Sodium Chloride 1,000 ml @ 100 mls/hr Q10H IV 08/27/19 18:00 09/26/19 17:59 08/30/19 23:54 Diphenhydramine HCl (Benadryl) 50 mg Q6H PRN IVP Itching 08/27/19 17:45 09/26/19 17:44 08/27/19 18:53 Doxycycline Monohydrate (Doxycycline Monohydrate) 100 mg EVERY 12 HOURS ORAL 08/30/19 21:00 09/06/19 20:59 08/31/19 08:36 Hydrocortisone (Anusol HC) 1 applic TWICE A DAY RECTAL 08/29/19 18:00 09/28/19 17:59 08/31/19 08:37 Ketorolac Tromethamine (Toradol 30mg) 30 mg BID PRN IV For Pain 08/27/19 23:45 09/01/19 23:44 08/29/19 16:31 Loperamide HCl (Imodium) 2 mg Q4H PRN ORAL Diarrhea 08/30/19 11:30 09/29/19 11:29 08/30/19 11:34 Lorazepam (Ativan 2mg/ml 1ml) 0.5 mg QHS PRN IV For Anxiety 08/28/19 20:15 09/04/19 20:06 08/30/19 21:58 Lorazepam (Ativan) 0.5 mg QHS PRN ORAL For Anxiety 08/27/19 21:15 09/03/19 21:14 08/27/19 21:37 Metoclopramide HCl (Reglan) 10 mg Q8H PRN IVP Nausea & Vomiting 08/30/19 16:15 09/29/19 16:14 08/30/19 16:11 Morphine Sulfate (Morphine Sulfate) 2 mg Q4H PRN IVP For Pain 08/27/19 23:45 09/03/19 23:44 08/31/19 06:07 Ondansetron HCl (Zofran) 4 mg Q4H PRN IVP Nausea & Vomiting 08/30/19 11:15 09/29/19 11:14 08/31/19 06:06 Pantoprazole (Protonix) 40 mg DAILY IVP 08/28/19 09:00 09/27/19 08:59 08/29/19 08:39 Shira Avitia M.D. Aug 31, 2019 14:23
[2019-08-31] MEDS ORDERED: D5NS 1000ml IV ONE (15:12)
--- NOTE | 2019-09-02 10:43 | Discharge Summary ---
Discharge Summary Discharge Summary _ DATE OF ADMISSION: 08/27/2019 DATE OF DISCHARGE: 08/31/2019 DISCHARGED BY: Dr. Teresa REASON FOR ADMISSION: 38 years old female with past medical history of cervical cancer stage III, currently on radiation therapy, presented to emergency department due to complaints of nausea, vomiting, and diarrhea. Patient reported persistent nausea, vomiting and diarrhea for the past 3 days. Patient was unable to tolerate oral intake . Last radiation treatment was 2 weeks ago. Patient is scheduled for surgery for cervical cancer later in the month. She denied fever and chills. Pain reported as generalized , worse in the pelvic region, 10 out of 10 on a scale 1-10. Patient was seen in the emergency department few days prior for the same reason. CT scan of the abdomen at that time showed some inflammatory changes in the bowels, most likely secondary to radiation exposure. Patient was discharged on oral antibiotics. However, patient was unable to take medication at home due to vomiting. Upon evaluation vital signs were stable, but blood pressure was on the low side. Laboratory work-up revealed pancytopenia with WBC 2.9, hemoglobin 10.4, hematocrit 31. Platelet count 121. Stable electrolytes and renal parameters. Glucose 98. Stable LFT and lipase. In emergency department patient received 2 L of fluids , analgesic , antiemetic and admitted for further management. CONSULTANTS: compound specialist Dr. Ramsey ID specialist GI specialist Dr. Kennedy ship liner/oncologist Dr. Dunlap [facility] COURSE: Patient admitted to medical surgical floor and started on the IV fluids. Pain management was addressed. Antiemetic provided as needed. Patient started on empiric antibiotics. Blood cultures were negative. Stool culture was negative. Stool for C. difficile was negative. Vaginal culture revealed growth of Amanda albicans and growth of Strep agalactiae hemolytic and Staph aureus. Patient received 1 dose of fluconazole as per ID specialist recommendation. Patient started on doxycycline for 7 days. Urine culture grew small colony of E. coli with colony count 10-20 K. Empirically started aztreonam was discontinued. Pancytopenia was likely due to bone marrow suppression , secondary to recent radiation. Patient received 1 dose of filgrastim. for WBC 1.7. WBC initially improved to 6.0, and prior to discharge WBC 4.0 , hemoglobin 8.4 , hematocrit 24.1 ,platelet count 77. Anemia work-up was consistent with anemia of chronic disease. Hepatitis panel was negative. HIV status was nonreactive. [employer] followed for initial hypotension. Echocardiogram demonstrated preserved ejection fraction of 55 to 60%. No evidence of left ventricular hypertrophy. No pericardial effusion. No evidence of wall motion abnormality. Right ventricular systolic pressure of 15. Patient was hydrated. Blood pressure slowly improved , and prior to discharge blood pressure 112/65. Pulse oximetry was stable on room air . Patient denied chest pain or shortness of breath. Troponin initially was negative. Diet was slowly advanced as tolerated. Antiemetic were on board as needed. Patient was able to tolerate diet in small amounts. Protein supplements provided as per travel registered nurse nicu recommendations. Patient clinically stabilized and was ready for discharge FINAL DIAGNOSES: Cervical cancer stage III, status post recent radiation Possible sepsis Radiation enteritis Vaginal discharge Vaginal yeast infection Diarrhea Hypotension- improved Moderate protein calorie malnutrition Pancytopenia likely due to recent radiation Dehydration DISCHARGE MEDICATIONS: See Medication Reconciliation list. DISCHARGE INSTRUCTIONS: Patient was discharged home. Follow-up with a primary care provider in 1 week. I have been assigned to dictate discharge summary for this account. I was not involved in the patient's management. Yanely Soto NP Sep 02, 2019 10:43
== END 2019-08-31 13:50 | disposition home or self-care (01) | DRG 720 ==
LOC: EMR 13:10 → 3E 14:15 → EDBEDREQ 14:31 → 3E 15:15
DX: A41.9 Sepsis, unspecified organism (principal); D61.818 Other pancytopenia; E44.0 Moderate protein-calorie malnutrition; K52.0 Gastroenteritis and colitis due to radiation; E86.0 Dehydration; I95.9 Hypotension, unspecified; Y84.2 Radiological procedure and radiotherapy as the cause of abnormal reaction of the patient, or of later complication, without mention of misadventure at the time of the procedure; C53.9 Malignant neoplasm of cervix uteri, unspecified; N39.0 Urinary tract infection, site not specified; Z68.1 Body mass index [BMI] 19.9 or less, adult; Z88.0 Allergy status to penicillin; B37.3 Candidiasis of vulva and vagina
CPT/HCPCS: 36415; 80048; 80053; 80307; 81003; 81025; 82607; 82728; 82746; 82977; 83036; 83540; 83550; 83690; 83735; 83880; 84100; 84439; 84443; 84484; 84550; 85007; 85025; 85379; 86140; 86703; 86705; 86709; 86803; 87040; 87045; 87070; 87086; 87181; 87324; 87340; 93005; 93306; 96361; 96374; 96375; 99285; J2405; J2765; J7030; J8499